=== PATIENT | male | born 1960 | race Caucasian/White ===

== ENCOUNTER 2022-10-26 23:48 | Inpatient (IN) | payer MEDICAID ==
[~2022-10-26] VITALS: Ht 165.1 cm; Wt 59.4 kg
[2022-10-26] MEDS ORDERED: ALBUTEROL SULFATE 2.5 MG/3 ML NEBU ONE (23:52)
[2022-10-26] MEDS ORDERED: IPRATROPIUM BROMIDE 0.5 MG/2.5 ML NEBU ONE (23:52)
[2022-10-27] VITALS (59 sets, daily range): BP systolic 78–153; BP diastolic 42–100
[2022-10-27] MEDS ORDERED: DEXAMETHASONE SOD PHOSPHATE 10 MG INJ ONE (00:03)
[2022-10-27] MEDS ORDERED: MAGNESIUM SULFATE/D5W 200 ML ONE (00:04)
[2022-10-27] MEDS ORDERED: ACETAMINOPHEN 650 MG SUPP.RECT RC ONE ×2 (00:06→00:15)
[2022-10-27] MEDS ORDERED: MAGNESIUM SULFATE 2 GM in IV DEXTROSE 5% 100 ML IV ONE (00:15)
[2022-10-27] MEDS ORDERED: DEXAMETHASONE SOD PHOSPHATE 4 MG INJ IV ONE (00:15)
[2022-10-27] MEDS ORDERED: CEFEPIME HCL 2 G in IV DEXTROSE 5% 50 ML IV ONE (00:15)
[2022-10-27] MEDS ORDERED: IPRATROPIUM BROMIDE 0.5 MG/2.5 ML NEBU NEB ONE (00:15)
[2022-10-27] MEDS ORDERED: ALBUTEROL SULFATE 2.5 MG/3 ML NEBU NEB ONE (00:15)
[2022-10-27] MEDS ORDERED: IV NORMAL SALINE 1000 ML BAG IV ONE (00:15)
[2022-10-27] MEDS ORDERED: VANCOMYCIN IV 1,000 MG in IV DEXTROSE 5% 250 ML IV ONE (00:15)
[2022-10-27] MEDS ORDERED: CEFEPIME HCL 1 G VIAL ONE (00:21)
[2022-10-27] MEDS ORDERED: VANCOMYCIN IV 200 ML ONE ×2 (00:21→01:02)
[2022-10-27] MEDS ORDERED: PRED2.5T PO (00:26)
[2022-10-27] MEDS ORDERED: LOSA25TA27 PO (00:26)
[2022-10-27] MEDS ORDERED: METF-440 PO (00:26)
[2022-10-27 00:29] LABS: SITE, VBG RIGHT BRACHIAL; VENT MODE, VBG BIPAP
[2022-10-27] MEDS ORDERED: IV NORMAL SALINE 500 ML BAG IV ONE ×3 (00:30→04:30)
[2022-10-27 00:53] LABS: HEMATOCRIT 24.7 % (36.7-47.1); MEAN CORPUSCULAR VOLUME 83.5 fL (73.0-96.2); PLATELET COUNT (AUTO) 148 K/uL (152-348)
[2022-10-27 00:53] LABS: CARBON DIOXIDE 18 mmol/L (21-32); CHLORIDE 107 mmol/L (98-107); CREATININE 2.2 mg/dL (0.6-1.3); GLUCOSE 134 mg/dL (74-106); POTASSIUM 3.6 mmol/L (3.5-5.1); UREA NITROGEN, BLOOD 47 mg/dL (7-18)
--- NOTE | 2022-10-27 01:01 | NUR ---
PULLED OUT VANCOMYCIN 1G. BAG DEFFECTIVE, WILL PULL OUT ANOTHER BAG.
[2022-10-27 01:07] LABS: ALANINE AMINOTRANSFERASE 24 U/L (16-63); ALKALINE PHOSPHATASE 105 U/L (50-136); ASPARTATE AMINOTRANSFERASE 17 U/L (15-37); BILIRUBIN,DIRECT 0.1 mg/dL (0.0-0.2); BILIRUBIN,TOTAL 0.2 mg/dL (0.2-1.0); TOTAL PROTEIN, SERUM 6.5 g/dL (6.4-8.2)
--- NOTE | 2022-10-27 02:02 | NUR ---
Patient's SBP in 90s. notified.
--- NOTE | 2022-10-27 03:00 | NUR ---
Patient's Beth called, updated about patient's condition. Made aware about plan for admission
--- NOTE | 2022-10-27 03:03 | NUR ---
Beth Clark [phone] - patient's
--- NOTE | 2022-10-27 04:08 | NUR ---
Patient refused vance catheter. notified
--- NOTE | 2022-10-27 04:10 | NUR ---
Patient has been accepted by Leisa Latif AEROSPACE TECHNICIAN - hospitalist
--- NOTE | 2022-10-27 04:14 | NUR ---
called 3rd floor for ANABELLA bed, spoke with Beth HU. Was told no ANABELLA bed available at the moment.
[2022-10-27] MEDS ORDERED: DEXTROSE 50% 50 ML DISP.SYRIN IV PRN (04:15)
[2022-10-27] MEDS ORDERED: MAGNESIUM HYDROXIDE 30 ML LIQUID UDC PO PRN (04:15)
[2022-10-27] MEDS ORDERED: HYDROCORTISONE SOD SUCCINATE 100 MG/2 ML VIAL IV ONE ×2 (04:15→04:53)
[2022-10-27] MEDS ORDERED: IV NS 1000 ML 1,000 ML IV PRN (04:15)
[2022-10-27] MEDS ORDERED: REMEDY ESSENTIAL ZINC PASTE 113 GM TP PRN (04:15)
--- NOTE | 2022-10-27 04:20 | NUR ---
Patient is now off Bipap
[2022-10-27] MEDS ORDERED: NOREPINEPHRINE BITARTRATE 8 MG in IV NORMAL SALINE 242 ML IV PRN (04:45)
--- NOTE | 2022-10-27 04:48 | NUR ---
Patient is placed back on Bipap
[2022-10-27] MEDS ORDERED: NOREPINEPHRINE BITARTRATE 4 MG/4 ML VIAL IV ONE (05:09)
[2022-10-27] MEDS ORDERED: PHENYLEPHRINE IV 100 MG in IV NORMAL SALINE 240 ML IV PRN ×2 (05:15→07:30)
[2022-10-27] MEDS ORDERED: PHENYLEPHRINE 10 MG/1 ML VIAL ONE (05:26)
[2022-10-27 05:42] LABS: ABG BASE EXCESS -9.5 mmol/L; ABG HCO3 15.5 mmol/L; ABG PH 7.331 (7.350-7.450); ABG PO2 145.9 mmHg (75.0-100.0); ABG SITE LEFT RADIAL; ABG TOTAL HEMOGLOBIN 7.2 G/dL (13.5-18.0); COHb 0.1 % (0.5-1.5); MetHb 0.3 % (0.0-1.5); O2Hb 96.2 % (94.0-97.0); VENT MODE BIPAP
--- NOTE | 2022-10-27 05:45 | NUR ---
Called Hospitalist machine precision engraver Leisa Latif NP, was told patient will be CCU status
[2022-10-27] MEDS ORDERED: IPRATROPIUM BROMIDE 0.5 MG/2.5 ML NEBU ONE ×3 (05:58→19:52)
[2022-10-27] MEDS ORDERED: CEFEPIME HCL 1 G in IV DEXTROSE 5% 50 ML IV SCH (06:00)
[2022-10-27] MEDS ORDERED: ALBUTEROL SULFATE 1.25 MG/3 ML NEBU NEB SCH ×2 (06:00→07:35)
[2022-10-27] MEDS ORDERED: ALBUTEROL SULFATE 1.25 MG/3 ML NEBU ONE ×2 (06:00→13:26)
[2022-10-27] MEDS ORDERED: IPRATROPIUM BROMIDE 0.5 MG/2.5 ML NEBU NEB SCH ×2 (06:00→13:30)
--- NOTE | 2022-10-27 06:05 | NUR ---
Endorsed to Paco RN - CCU
--- NOTE | 2022-10-27 06:32 | NUR ---
DR Bronson ordered PICC line insertion. Abdias VillafanaTimber Feller made aware.
--- NOTE | 2022-10-27 07:15 | NUR ---
Received pt,. from ICU/ER nurse pt. ON NSR rate in the 90's sbp maintained by neosynephrine running at max 3mcg/kg/min. Ms running at 150cc/hr. Patient AAOX4. able to sign PICC line consent. Peripheral IV bilateral to A/C area. bilateral skin tears to elbow area. will continue with care plan and notified attending.
[2022-10-27] MEDS: IPRATROPIUM BROMIDE 0.5 MG/2.5 ML NEBU NEB SCH ×3 (07:35→20:10)
[2022-10-27 07:50] LABS: HEMATOCRIT 24.7 % (36.7-47.1); MEAN CORPUSCULAR HEMOGLOBIN 25.2 uug (23.8-33.4); MEAN CORPUSCULAR VOLUME 82.8 fL (73.0-96.2); PLATELET COUNT (AUTO) 150 K/uL (152-348)
[2022-10-27] MEDS: BLOOD SUGAR DIAGNOSTIC 1 EACH STRIP VI SCH ×4 (08:08→21:20)
--- NOTE | 2022-10-27 08:55 | NUR ---
Attending physician Amarjit Sales Oleg in the unit to examine pt. after seen SBP readings Dr. Tracey to add levophed if needed it.
[2022-10-27] MEDS ORDERED: NOREPINEPHRINE BITARTRATE 32 MG in IV NORMAL SALINE 218 ML IV PRN ×2 (09:00→09:15)
[2022-10-27] MEDS ORDERED: ACETAMINOPHEN 650 MG SUPP.RECT RC PRN (09:15)
[2022-10-27 09:24] LABS: IRON, SERUM < 5 ug/dL (50-175)
--- NOTE | 2022-10-27 09:30 | NUR ---
Pulmonary services, Dr. Haynes in the unit to see and examine pt. report given see order hx.
[2022-10-27] MEDS: POTASSIUM CHLORIDE 20 MEQ in IV D5/ 0.9% NACL 1,000 ML IV PRN ×2 (09:42→23:44)
[2022-10-27] MEDS ORDERED: PANTOPRAZOLE SODIUM 40 MG VIAL ONE (09:52)
[2022-10-27] MEDS: PANTOPRAZOLE SODIUM 40 MG VIAL IV SCH (09:57)
--- NOTE | 2022-10-27 10:30 | NUR ---
Bladder scanned at this time with a total of 195cc resulted, as I was informed during shift report pt. did not void since arrival to E.. and according to pt. he has problems with retention and had procedures done in the past. attending notified orders to insert vance catheter received.
--- NOTE | 2022-10-27 10:45 | NUR ---
4 fail attempts to insert vance catheter pt's urethra has the size of a needle. Attending informed and I was informed to wait for urologist Dr. Nicholas and to have urologist cart ready.
[2022-10-27 10:47] LABS: *BILIRUBIN,URIN NEGATIVE (NEGATIVE); *BLOOD, URINE 3+ (NEGATIVE); *CLARITY,URINE CLEAR (CLEAR); *COLOR,URINE YELLOW (YELLOW); *KETONES,URINE NEGATIVE (NEGATIVE); *UROBILINOGEN,URINE 0.2 E.U./dl (NORMAL); LEUKOCYTE ESTERASE ,URINE 2+ (NEGATIVE); NITRITE, URINE POSITIVE (NEGATIVE); PH,URINE 5.5 (5.0-8.0); UGLUCOSE NEGATIVE (NEGATIVE)
[2022-10-27] MEDS: PHENYLEPHRINE IV 100 MG in IV NORMAL SALINE 240 ML IV PRN ×2 (11:08→15:34)
--- NOTE | 2022-10-27 11:50 | NUR ---
Dr. Ye urologist in to insert vance Procedure finish at 1300 Dr. flores to insert vance and patient undergo insertion of Supra Pubic Catheter. Addendum: 10/27/22 at 1431 by MESFIN WAGNER RN Suprapubic in and finish at 1255
[2022-10-27] MEDS ORDERED: CEFEPIME HCL 2 G in IV DEXTROSE 5% 100 ML IV SCH (12:00)
[2022-10-27] MEDS ORDERED: MEROPENEM 1 G in IV NORMAL SALINE 100 ML IV SCH (12:00)
[2022-10-27 12:06] LABS: BACTERIA,URINE MODERATE /HPF (NONE SEEN); SQUAMOUS EPITHELIAL CELL,UR MODERATE /HPF (NONE SEEN)
[2022-10-27] MEDS ORDERED: VANCOMYCIN IV 500 MG in IV DEXTROSE 5% 100 ML IV ONE ×2 (13:00→15:00)
--- NOTE | 2022-10-27 13:00 | NUR ---
PICC line R.N. in the unit procedure done at 1325 confirmation done by chest X-ray and as stated by picc line R.N. "Ok to use no need to wait for x-ray results."
[2022-10-27] MEDS: LEVALBUTEROL HCL NEB 0.63 MG/3 ML NEBU NEB SCH ×2 (13:36→20:10)
[2022-10-27] MEDS ORDERED: methylPREDNISolone SOD SUCC 40 MG/ML VIAL ONE ×2 (14:03→21:21)
[2022-10-27] MEDS: methylPREDNISolone SOD SUCC 40 MG/ML VIAL IV SCH ×2 (14:04→21:22)
--- NOTE | 2022-10-27 19:10 | NUR ---
At this time I was informed by Dr. Cottrell of a critical microbiology results. had already called Dr. Duron and recommended isolation for the patient. Following hospital protocol ID Dr. Roper was called and notified. As stated by her " the source of infection is more likely coming from the belly" and full report given. Dr. Roper stated "there is no need for isolation. Addendum: 10/27/22 at 2031 by MESFIN WAGNER RN At this time the called was transferred to Dr. Cottrell who had a lengthy conversation with ID physician. and then Dr. Cottrell suggested to continue with isolation at least for the first 24hours.
[2022-10-27] MEDS ORDERED: LEVALBUTEROL HCL NEB 0.63 MG/3 ML NEBU ONE (19:52)
--- NOTE | 2022-10-27 20:20 | NUR ---
Called [facility] ambulance to transport ICU patient to [facility] for droplet isolation. ETA is 1hr with param [place] house operator accompaning patient to [facility] with [facility] ambulance.
--- NOTE | 2022-10-27 20:25 | NUR ---
Dr. Duron called at this time to informed him of ID statements and also about the plans to transfer pt. and Dr. Tracey with transfer.
--- NOTE | 2022-10-27 20:36 | NUR ---
Black Leather Trimmer called ID physician and orders to follow isolation for droplet precautions."
[2022-10-27] MEDS ORDERED: DEXT50DI8 IV (20:50)
[2022-10-27] MEDS ORDERED: ACET650S13 RC (20:50)
[2022-10-27] MEDS ORDERED: NORE4PLA IV (20:50)
[2022-10-27] MEDS ORDERED: ONDA4VIA23 IV (20:50)
[2022-10-27] MEDS ORDERED: MERO1VIA23 IV (20:50)
[2022-10-27] MEDS ORDERED: Blood Sugar Diagnostic VI (20:50)
[2022-10-27] MEDS ORDERED: MENT113O TP (20:50)
[2022-10-27] MEDS ORDERED: ACET325T53 PO (20:50)
[2022-10-27] MEDS ORDERED: RXVAN XX (20:50)
[2022-10-27] MEDS ORDERED: INSU100V28 SQ ×2 (20:50)
[2022-10-27] MEDS ORDERED: [UNRECOGNIZED DRUG - CODE] IV (20:50)
[2022-10-27] MEDS ORDERED: PANT40VI IV (20:50)
[2022-10-27] MEDS ORDERED: IPRA0.2S6 NEB (20:50)
[2022-10-27] MEDS ORDERED: methylPREDNISolone SOD SUCC IV (20:50)
[2022-10-27] MEDS ORDERED: LEVA0.635 NEB (20:50)
--- NOTE | 2022-10-27 20:50 | NUR ---
PT. transfer to E.R. room 3 to observe droplet precautions.
--- NOTE | 2022-10-27 21:50 | NUR ---
Ambulance for transferring pt. Patient's files endorse to Septic [employer]er
[2022-10-27] MEDS ORDERED: MEROPENEM 1 G VIAL IV ONE (23:38)
[2022-10-27] MEDS: MEROPENEM 2 G in IV NORMAL SALINE 100 ML IV SCH (23:45)
[2022-10-28] VITALS (24 sets, daily range): BP systolic 117–169; BP diastolic 48–95
--- NOTE | 2022-10-28 01:00 | NUR ---
Patient with a severe episode of SOB saturation drop to low 88-94% patient became cyanotic with heart rate in the 120-125. BT provided and FIO2 increased to 100%. saturation up to 97%. Addendum: 10/28/22 at 0115 by MESFIN WAGNER RN PT still c/of feeling of shortness of breath.
[2022-10-28] MEDS ORDERED: LEVALBUTEROL HCL NEB 0.63 MG/3 ML NEBU ONE ×5 (01:05→19:08)
[2022-10-28] MEDS ORDERED: IPRATROPIUM BROMIDE 0.5 MG/2.5 ML NEBU ONE ×4 (01:05→19:08)
[2022-10-28] MEDS: LEVALBUTEROL HCL NEB 0.63 MG/3 ML NEBU NEB SCH ×4 (01:11→19:22)
[2022-10-28] MEDS: IPRATROPIUM BROMIDE 0.5 MG/2.5 ML NEBU NEB SCH ×4 (01:11→19:22)
--- NOTE | 2022-10-28 01:30 | NUR ---
FO2 down to 50% post treatment.
--- NOTE | 2022-10-28 03:33 | NUR ---
FIO2 down to 40%.
[2022-10-28] MEDS ORDERED: methylPREDNISolone SOD SUCC 40 MG/ML VIAL ONE ×3 (05:10→20:49)
[2022-10-28 05:11] LABS: HEMATOCRIT 21.5 % (36.7-47.1); MEAN CORPUSCULAR HEMOGLOBIN 25.2 uug (23.8-33.4); MEAN CORPUSCULAR VOLUME 82.2 fL (73.0-96.2); PLATELET COUNT (AUTO) 55 K/uL (152-348)
[2022-10-28] MEDS: methylPREDNISolone SOD SUCC 40 MG/ML VIAL IV SCH ×3 (05:11→21:02)
[2022-10-28 05:36] LABS: CREATININE 2.8 mg/dL (0.6-1.3); MAGNESIUM 2.2 mg/dL (1.8-2.4); PHOSPHOROUS 5.6 mg/dL (2.5-4.9); POTASSIUM 5.5 mmol/L (3.5-5.1)
--- NOTE | 2022-10-28 05:45 | NUR ---
FIO2 increased to 50% due to pt's c/of shortness of breath.
--- NOTE | 2022-10-28 06:15 | NUR ---
Abnormal labs reported to radiology transcriptionist Md. Jeff Lakhani orders to increase bipap rate to 24 RT team informed.
[2022-10-28 06:16] LABS: ABG HCO3 15.7 mmol/L; ABG PCO2 33.3 mmHg (35.0-45.0); ABG PO2 142.7 mmHg (75.0-100.0); ABG SITE LEFT RADIAL; ABG TOTAL HEMOGLOBIN 7.1 G/dL (13.5-18.0); COHb 0.1 % (0.5-1.5); MetHb 0.3 % (0.0-1.5); VENT MODE BIPAP
[2022-10-28] MEDS: BLOOD SUGAR DIAGNOSTIC 1 EACH STRIP VI SCH ×4 (07:42→21:03)
[2022-10-28] MEDS ORDERED: PANTOPRAZOLE SODIUM 40 MG VIAL ONE (08:06)
[2022-10-28] MEDS: PANTOPRAZOLE SODIUM 40 MG VIAL IV SCH (08:08)
[2022-10-28] MEDS: INSULIN REGULAR, HUMAN 300 UNIT/3 ML VIAL SQ PRN ×3 (08:16→16:14)
[2022-10-28] MEDS ORDERED: FUROSEMIDE 40 MG/4 ML VIAL ONE ×2 (09:19→20:48)
[2022-10-28] MEDS: FUROSEMIDE 40 MG/4 ML VIAL IV SCH ×2 (09:21→21:02)
[2022-10-28] MEDS ORDERED: IV D5/ 0.9% NACL 1,000 ML IV PRN (09:30)
[2022-10-28] MEDS ORDERED: VANCOMYCIN IV 500 MG in IV DEXTROSE 5% 100 ML IV ONE (11:00)
[2022-10-28] MEDS: MEROPENEM 2 G in IV NORMAL SALINE 100 ML IV SCH ×2 (11:50→23:09)
[2022-10-28] MEDS ORDERED: ALBUTEROL SULFATE 2.5 MG/3 ML NEBU ONE (13:14)
[2022-10-28] MEDS ORDERED: SODIUM BICARBONATE 8.4% 100 MEQ in IV D5 1/2 NS 1000 ML 1,000 ML IV PRN (14:00)
[2022-10-28 15:28] LABS: BILIRUBIN,TOTAL 0.6 mg/dL (0.2-1.0); CREATININE 3.1 mg/dL (0.6-1.3); MAGNESIUM 2.4 mg/dL (1.8-2.4); PHOSPHOROUS 5.5 mg/dL (2.5-4.9); POTASSIUM 5.4 mmol/L (3.5-5.1); TOTAL PROTEIN, SERUM 6.1 g/dL (6.4-8.2)
--- NOTE | 2022-10-28 20:15 | NUR ---
was given pt's insurance card and drivers license card to take home. Eye glasses remain with the patient. Pt is aware that the took the insurance card and DL.
[2022-10-28 20:59] LABS: HEMATOCRIT 27.1 % (36.7-47.1); MEAN CORPUSCULAR HEMOGLOBIN 25.8 uug (23.8-33.4); MEAN CORPUSCULAR VOLUME 81.3 fL (73.0-96.2); PLATELET COUNT (AUTO) 51 K/uL (152-348)
[2022-10-29] VITALS (24 sets, daily range): BP systolic 118–155; BP diastolic 68–94
[2022-10-29] MEDS ORDERED: LEVALBUTEROL HCL NEB 0.63 MG/3 ML NEBU ONE ×3 (00:24→13:04)
[2022-10-29] MEDS ORDERED: IPRATROPIUM BROMIDE 0.5 MG/2.5 ML NEBU ONE ×3 (00:24→13:04)
[2022-10-29] MEDS: IPRATROPIUM BROMIDE 0.5 MG/2.5 ML NEBU NEB SCH ×4 (01:07→19:33)
[2022-10-29] MEDS: LEVALBUTEROL HCL NEB 0.63 MG/3 ML NEBU NEB SCH ×4 (01:07→19:33)
[2022-10-29] MEDS ORDERED: methylPREDNISolone SOD SUCC 40 MG/ML VIAL ONE ×2 (05:41→15:40)
[2022-10-29] MEDS: methylPREDNISolone SOD SUCC 40 MG/ML VIAL IV SCH ×3 (05:42→22:00)
--- NOTE | 2022-10-29 06:55 | NUR ---
Received pt. on equipment monitor phototypesetting NSR with sbp within desired limits, no need of vasopressors. Remains on BIPAP : Rate 16, 10/5, 30% FIO2. As reported no NG- T unable to insert one pt. started bleeding and refusing it. SPC to gravity with clear fede output. skin breakdown to be follow up as ordered. Pt. on fist step mattress. PICC line patent.
[2022-10-29 07:34] LABS: HEMATOCRIT 27.2 % (36.7-47.1); MEAN CORPUSCULAR HEMOGLOBIN 25.7 uug (23.8-33.4); MEAN CORPUSCULAR VOLUME 80.6 fL (73.0-96.2)
[2022-10-29] MEDS: BLOOD SUGAR DIAGNOSTIC 1 EACH STRIP VI SCH ×4 (07:34→21:00)
[2022-10-29 07:42] LABS: PLATELET COUNT (AUTO) 48 K/uL (152-348)
[2022-10-29] MEDS ORDERED: FUROSEMIDE 20 MG/2 ML VIAL ONE ×2 (07:43→08:05)
[2022-10-29] MEDS ORDERED: PANTOPRAZOLE SODIUM 40 MG VIAL ONE (07:43)
[2022-10-29] MEDS: PANTOPRAZOLE SODIUM 40 MG VIAL IV SCH (08:04)
[2022-10-29] MEDS: FUROSEMIDE 40 MG/4 ML VIAL IV SCH (08:04)
[2022-10-29 08:06] LABS: CREATININE 2.8 mg/dL (0.6-1.3); MAGNESIUM 2.3 mg/dL (1.8-2.4); PHOSPHOROUS 5.5 mg/dL (2.5-4.9); POTASSIUM 4.1 mmol/L (3.5-5.1)
--- NOTE | 2022-10-29 08:06 | NUR ---
For 899 lasix transaction done twice in [place] I remove 2omg first by user error did not pick the 40mg. then went back to get the other 30mg.
[2022-10-29 08:21] LABS: ABG BASE EXCESS -0.4 mmol/L; ABG HCO3 22.8 mmol/L; ABG PCO2 32.1 mmHg (35.0-45.0); ABG PO2 92.3 mmHg (75.0-100.0); ABG SITE RIGHT RADIAL; ABG TOTAL HEMOGLOBIN 9.4 G/dL (13.5-18.0); COHb 1.5 % (0.5-1.5); MetHb 0.2 % (0.0-1.5); O2Hb 93.8 % (94.0-97.0); VENT MODE BIPAP - 15/5
[2022-10-29] MEDS: SODIUM BICARBONATE 8.4% 50 MEQ in IV D5W 1000ML 1,000 ML IV PRN (09:07)
--- NOTE | 2022-10-29 09:16 | NUR ---
Dr. Padilla in the unit to follow up on pt. report given, see order hx.
[2022-10-29 09:28] LABS: *URINE TOTAL PROTEIN RANDOM < 2.0 mg/dL (<150/24HR)
[2022-10-29 09:29] LABS: *CREATININE,URINE 14.4 mg/dL (30-125)
--- NOTE | 2022-10-29 10:15 | NUR ---
Pt. sinus on sinus tachycardia rate in the 120-s non-sustained pt. auscultated remains with c/of chest heaviness. EKG done and Sinus rhythm reading, notified to grades [address]ay.
--- NOTE | 2022-10-29 11:00 | NUR ---
PT. placed on high flow 35L 35% FIO2 PT. 20 min. after pt. is with c/of shortness of breath and feeling his chest heavy. saturation of 97% RR in the higher 20's. pt. slightly tachypneic SBO within normal Dr. Haynes called and orders to continue with high-flow if pt. desaturates and unable to tolerate high flow orders fo prn bipap as needed and draw blood gas if needed.
--- NOTE | 2022-10-29 11:45 | NUR ---
A call from Urologist Dr. Ye to follow up on SPC informed that device is draining when urine level rises above insertion site. Orders to advance it about two inches down received and implemented.
--- NOTE | 2022-10-29 12:30 | NUR ---
Pt's in to visit and at this time I was questioned about pt's glasses. According to she was here last night to visit and R.N. in charge of pt returned pt's belongings to her but she stated she did not take home the glasses I only took his ID card. I search for pt's reading glasses and did not find them. and belongings list was not updated when belongings returned.
[2022-10-29] MEDS: MEROPENEM 2 G in IV NORMAL SALINE 100 ML IV SCH ×2 (12:48→23:09)
[2022-10-29 13:01] LABS: *BILIRUBIN,URIN NEGATIVE (NEGATIVE); *BLOOD, URINE 2+ (NEGATIVE); *CLARITY,URINE CLEAR (CLEAR); *COLOR,URINE YELLOW (YELLOW); *KETONES,URINE NEGATIVE (NEGATIVE); *UROBILINOGEN,URINE 0.2 E.U./dl (NORMAL); LEUKOCYTE ESTERASE ,URINE TRACE (NEGATIVE); NITRITE, URINE NEGATIVE (NEGATIVE); PH,URINE 5.5 (5.0-8.0); UGLUCOSE NEGATIVE (NEGATIVE)
[2022-10-29 13:25] LABS: BACTERIA,URINE NONE SEEN /HPF (NONE SEEN); CALCIUM CARBONATE CRYSTALS,UR NONE SEEN /HPF (NONE SEEN); CALCIUM OXALATE CRYSTALS,UR NONE SEEN /HPF (NONE SEEN); CALCIUM PHOSPHATE CRYSTALS,UR NONE SEEN /HPF (NONE SEEN); COARSE GRANULAR CASTS,URINE NONE SEEN /LPF; CYSTINE CRYSTALS,URINE NONE SEEN /HPF (NONE SEEN); FATTY CASTS,URINE NONE SEEN /LPF (NONE SEEN); MUCUS,URINE FEW /LPF (0-FEW); RED BLOOD CELL CASTS,URINE NONE SEEN /LPF (NONE SEEN); SPERM,URINE NONE SEEN /HPF (NONE SEEN); SQUAMOUS EPITHELIAL CELL,UR FEW /HPF (NONE SEEN); TRICHOMONAS,URINE NONE SEEN /HPF (NONE SEEN); TRIPLE PHOSPHATE CRYSTAL,UR NONE SEEN /HPF (NONE SEEN); TYROSINE CRYSTAL,URINE NONE SEEN /HPF (NONE SEEN); URIC ACID CRYSTALS,URINE NONE SEEN /HPF (NONE SEEN); URINE AMORPHOUS PHOSPHATES NONE SEEN /HPF; URINE AMORPHOUS URATE NONE SEEN /HPF; WAXY CASTS,URINE NONE SEEN /LPF (NONE SEEN); WBC,URINE 0-3 /HPF (0-3); YEAST,URINE NONE SEEN /HPF (NONE SEEN)
[2022-10-29 14:46] LABS: BAND % (MANUAL) 0 % (0-10); NEUTROPHILS % (MANUAL) 94 % (42-75)
[2022-10-29 14:47] LABS: BASOPHILS % (MANUAL) 0 % (0-2); BLASTS, MANUAL % 0 % (0-0); EOSINOPHILS % (MANUAL) 0 % (0-8); LYMPHOCYTES % (MANUAL) 4 % (20-40); METAMYELOCYTES % 0 % (0-1); MONOCYTES % (MANUAL) 2 % (2-10); MYELOCYTES % 0 % (0-0); PROMYELOCYTES % 0 %; REACTIVE LYMPHOCYTES 0 % (0-0)
[2022-10-29] MEDS ORDERED: VANCOMYCIN IV 500 MG in IV DEXTROSE 5% 100 ML IV ONE (18:00)
--- NOTE | 2022-10-29 20:00 | NUR ---
O2 high flow 20L @ 30%
--- NOTE | 2022-10-29 20:00 | NUR ---
Glasses have been found.
[2022-10-29] MEDS: INSULIN REGULAR, HUMAN 300 UNITS/3 ML VIAL SQ PRN (21:00)
[2022-10-29] MEDS ORDERED: INSULIN REGULAR, HUMAN 300 UNIT/3 ML VIAL ONE (21:51)
--- NOTE | 2022-10-29 23:30 | NUR ---
O2 high flow 15L @ 30%
[2022-10-30] VITALS (23 sets, daily range): BP systolic 109–167; BP diastolic 68–89
--- NOTE | 2022-10-30 00:01 | NUR ---
Occasional PVC & pair's.
[2022-10-30] MEDS: IPRATROPIUM BROMIDE 0.5 MG/2.5 ML NEBU NEB SCH ×4 (00:40→19:15)
[2022-10-30] MEDS: LEVALBUTEROL HCL NEB 0.63 MG/3 ML NEBU NEB SCH ×3 (00:40→13:33)
[2022-10-30 05:06] LABS: MEAN CORPUSCULAR VOLUME 80.4 fL (73.0-96.2)
[2022-10-30 05:08] LABS: HEMATOCRIT 25.3 % (36.7-47.1)
[2022-10-30 05:26] LABS: PLATELET COUNT (AUTO) 40 K/uL (152-348)
[2022-10-30 05:30] LABS: CREATININE 2.5 mg/dL (0.6-1.3); POTASSIUM 3.5 mmol/L (3.5-5.1)
[2022-10-30 05:42] LABS: BILIRUBIN,DIRECT 0.2 mg/dL (0.0-0.2); BILIRUBIN,TOTAL 0.6 mg/dL (0.2-1.0); MAGNESIUM 2.1 mg/dL (1.8-2.4); PHOSPHOROUS 5.4 mg/dL (2.5-4.9); TOTAL PROTEIN, SERUM 5.7 g/dL (6.4-8.2)
[2022-10-30] MEDS: SODIUM BICARBONATE 8.4% 50 MEQ in IV D5W 1000ML 1,000 ML IV PRN (06:26)
[2022-10-30] MEDS: methylPREDNISolone SOD SUCC 40 MG/ML VIAL IV SCH ×3 (06:26→20:36)
[2022-10-30] MEDS: BLOOD SUGAR DIAGNOSTIC 1 EACH STRIP VI SCH ×4 (07:44→21:00)
[2022-10-30] MEDS ORDERED: IV 1/2NS 1000 ML 1,000 ML IV PRN (08:00)
[2022-10-30 08:31] LABS: ABG BASE EXCESS 5.3 mmol/L; ABG HCO3 28.9 mmol/L; ABG PCO2 38.2 mmHg (35.0-45.0); ABG PH 7.496 (7.350-7.450); ABG PO2 72.3 mmHg (75.0-100.0); ABG SITE RIGHT RADIAL; ABG TOTAL HEMOGLOBIN 8.8 G/dL (13.5-18.0); COHb 1.8 % (0.5-1.5); MetHb 0.2 % (0.0-1.5); O2Hb 90.8 % (94.0-97.0); VENT MODE HF
[2022-10-30] MEDS ORDERED: FUROSEMIDE 40 MG TABLET PO SCH (09:00)
[2022-10-30] MEDS: PANTOPRAZOLE SODIUM 40 MG VIAL IV SCH (09:21)
[2022-10-30] MEDS: MEROPENEM 1 G in IV NORMAL SALINE 100 ML IV SCH ×2 (13:05→20:36)
[2022-10-30] MEDS: ALBUTEROL SULFATE 1.25 MG/3 ML NEBU NEB SCH (19:15)
--- NOTE | 2022-10-30 20:57 | NUR ---
Noted [address] Lakhani notified; see orders.
[2022-10-30] MEDS ORDERED: POTASSIUM CHLORIDE 20 MEQ TAB.PRT.SR PO ONE (21:30)
[2022-10-30] MEDS: MAGNESIUM SULFATE/D5W 100 ML IV SCH ×3 (21:37→23:43)
[2022-10-31] VITALS (22 sets, daily range): BP systolic 134–165; BP diastolic 69–98
[2022-10-31] MEDS: MAGNESIUM SULFATE/D5W 100 ML IV SCH (00:43)
[2022-10-31] MEDS: IPRATROPIUM BROMIDE 0.5 MG/2.5 ML NEBU NEB SCH ×4 (00:48→20:51)
[2022-10-31] MEDS: ALBUTEROL SULFATE 1.25 MG/3 ML NEBU NEB SCH ×4 (00:48→20:51)
[2022-10-31] MEDS: MEROPENEM 1 G in IV NORMAL SALINE 100 ML IV SCH ×2 (04:24→12:10)
[2022-10-31 05:11] LABS: PHOSPHOROUS 4.6 mg/dL (2.5-4.9); POTASSIUM 3.9 mmol/L (3.5-5.1)
[2022-10-31 05:15] LABS: MEAN CORPUSCULAR VOLUME 81.4 fL (73.0-96.2)
[2022-10-31 05:16] LABS: MAGNESIUM 4.1 mg/dL (1.8-2.4)
[2022-10-31 05:21] LABS: PLATELET COUNT (AUTO) 37 K/uL (152-348)
[2022-10-31 06:15] LABS: ABG BASE EXCESS 2.4 mmol/L; ABG HCO3 26.5 mmol/L; ABG PCO2 38.8 mmHg (35.0-45.0); ABG PH 7.452 (7.350-7.450); ABG SITE RIGHT RADIAL; ABG TOTAL HEMOGLOBIN 8.4 G/dL (13.5-18.0); MetHb 0.3 % (0.0-1.5); O2Hb 94.1 % (94.0-97.0)
[2022-10-31] MEDS: BLOOD SUGAR DIAGNOSTIC 1 EACH STRIP VI SCH ×4 (07:41→21:57)
[2022-10-31] MEDS: INSULIN REGULAR, HUMAN 300 UNIT/3 ML VIAL SQ PRN ×2 (07:56→11:55)
[2022-10-31] MEDS: methylPREDNISolone SOD SUCC 40 MG/ML VIAL IV SCH ×2 (08:25→20:51)
[2022-10-31] MEDS: FUROSEMIDE 40 MG TABLET PO SCH (08:25)
[2022-10-31] MEDS: PANTOPRAZOLE SODIUM 40 MG VIAL IV SCH (08:25)
[2022-10-31] MEDS: CARVEDILOL 6.25 MG TABLET PO SCH ×2 (08:26→17:32)
[2022-10-31 11:07] LABS: HEPATITIS A AB, IgM Negative (Negative); HEPATITIS A AB, TOTAL Negative (Negative); HEPATITIS B SURFACE AG Negative (Negative)
--- NOTE | 2022-10-31 19:05 | NUR ---
Pt received on high flow oxygen changed to n/c 2 LPM. No distress observed suprapubic catheter in place drainage QS after lasix PO given. Complete bath given and incision care done. Dr Haynes order consult with GI AND Botany Professor but Dr Lakhani gave order with Dr Carbone and Dr Mccartney both doctors were called and placed order in the system. Pt remains NPO until GI-MD gives diet order. Dr Pride recommended Pt to be seen by oncologist and the possibility to transfer to higher level of care for care. Continue monitoring glucose level, and suprapubic catheter placement. Pt report no pain during this am shift Endorse care to incoming RN
--- NOTE | 2022-10-31 19:15 | NUR ---
Pt is noted in bed alert, responsive with call light in recah nad fall precautions in place as report is received from the off going nurse . Pt is Full code, Sinus Rhythm on the Tele monitor, Diminished Lungs sound with 02 2Liters Nasal Cannula , Skin dry, warm with skin areas noted, please see skin assessment sheet in chart. Pt is also noted with Right Upper Arm PICC Line and Suprapubic Cath in place . Pt care continue as he will be cmonitor closely for any S/S off distress or change in conditions as awaits GI and Hematology that has been consulted.
--- NOTE | 2022-10-31 19:45 | NUR ---
Pt care continue as he pt is seen by Estrada Martell Hematology/Oncology consulted by DR. Lakhani with orders noted for AM LOABS and CT off the CHEST/ABDOMINAL, PELVIS in AM as awaits GI to see Pt as well.
[2022-10-31] MEDS: CEFTRIAXONE 2 G in IV DEXTROSE 5% 100 ML IV SCH (20:51)
[2022-10-31] MEDS: METRONIDAZOLE 500 MG/NS 100ML 500 MG in PREMIXED 1 EACH IV SCH (21:58)
[2022-11-01] VITALS (24 sets, daily range): BP systolic 114–154; BP diastolic 66–107
--- NOTE | 2022-11-01 00:25 | NUR ---
Pt remain full code , Sinus rhythm on the Tele monitor with 02 2Liters Nasal Cannula therapy in progress as he is been monitor closely and assist as needed. Pt care continue .
[2022-11-01] MEDS: IPRATROPIUM BROMIDE 0.5 MG/2.5 ML NEBU NEB SCH ×4 (01:30→20:12)
[2022-11-01] MEDS: ALBUTEROL SULFATE 1.25 MG/3 ML NEBU NEB SCH ×4 (01:30→20:12)
[2022-11-01 04:43] LABS: HEMATOCRIT 28.2 % (36.7-47.1); MEAN CORPUSCULAR VOLUME 82.1 fL (73.0-96.2); PLATELET COUNT (AUTO) 57 K/uL (152-348)
[2022-11-01 04:54] LABS: THYROID STIMULATING HORMONE 1.169 mIU/mL (0.358-3.740)
[2022-11-01 04:57] LABS: BILIRUBIN,DIRECT 0.1 mg/dL (0.0-0.2); BILIRUBIN,TOTAL 0.4 mg/dL (0.2-1.0); TOTAL PROTEIN, SERUM 6.1 g/dL (6.4-8.2)
--- NOTE | 2022-11-01 04:59 | NUR ---
Pt is sleeping after LAB DRAW, AM and Wound as he remain on 02 2Liters Nsal Cannula with no S/S distress or C/O pain. Pt care continue with Right Upper Arm PICC Line and Suprapubic Cath in place.
[2022-11-01 05:15] LABS: *RHEUMATOID FACTOR SCREEN NEGATIVE (NEGATIVE)
[2022-11-01 05:47] LABS: CREATININE 1.9 mg/dL (0.6-1.3); MAGNESIUM 2.8 mg/dL (1.8-2.4); PHOSPHOROUS 5.3 mg/dL (2.5-4.9); POTASSIUM 4.1 mmol/L (3.5-5.1)
[2022-11-01] MEDS: METRONIDAZOLE 500 MG/NS 100ML 500 MG in PREMIXED 1 EACH IV SCH ×3 (06:19→21:57)
[2022-11-01] MEDS: BLOOD SUGAR DIAGNOSTIC 1 EACH STRIP VI SCH ×4 (06:29→20:36)
--- NOTE | 2022-11-01 07:10 | NUR ---
Received pt. on property assessment monitor NSR. AAOx4 sbp within desired limits. On NC saturation of 98%. pt. with c/of feeling short of breath. Saturation of 96-97%. Pt. NPO as ordered. Awaiting for CT abdomen consent obtained by night nurse. Iv line patent. SPC draining clear urine.
--- NOTE | 2022-11-01 07:12 | NUR ---
Pt care continue as report is given to AM receiving nurse and consent for CT with contrast is signed.
[2022-11-01] MEDS: CARVEDILOL 6.25 MG TABLET PO SCH ×2 (08:46→17:01)
[2022-11-01] MEDS: methylPREDNISolone SOD SUCC 40 MG/ML VIAL IV SCH ×2 (08:47→20:22)
[2022-11-01] MEDS: PANTOPRAZOLE SODIUM 40 MG VIAL IV SCH (08:47)
[2022-11-01] MEDS: FUROSEMIDE 40 MG TABLET PO SCH (08:47)
[2022-11-01] MEDS: SOD FERRIC GLUC COMPLX/SUCROSE 125 MG in IV NORMAL SALINE 100 ML IV SCH (14:03)
[2022-11-01] MEDS: INSULIN REGULAR, HUMAN 300 UNIT/3 ML VIAL SQ PRN (16:47)
[2022-11-01] MEDS ORDERED: IPRATROPIUM BROMIDE 0.5 MG/2.5 ML NEBU ONE ×2 (19:25→23:49)
[2022-11-01] MEDS ORDERED: ALBUTEROL SULFATE 1.25 MG/3 ML NEBU ONE ×2 (19:25→23:48)
[2022-11-01] MEDS: CEFTRIAXONE 2 G in IV DEXTROSE 5% 100 ML IV SCH (20:00)
[2022-11-01] MEDS ORDERED: methylPREDNISolone SOD SUCC 40 MG/ML VIAL ONE (20:19)
[2022-11-01] MEDS: INSULIN REGULAR, HUMAN 300 UNITS/3 ML VIAL SQ PRN (20:34)
[2022-11-01] MEDS ORDERED: ALTEPLASE 2 MG VIAL XX ONE ×2 (20:45)
[2022-11-02] VITALS (19 sets, daily range): BP systolic 107–155; BP diastolic 59–92
[2022-11-02] MEDS: IPRATROPIUM BROMIDE 0.5 MG/2.5 ML NEBU NEB SCH ×4 (00:03→20:37)
[2022-11-02] MEDS: ALBUTEROL SULFATE 1.25 MG/3 ML NEBU NEB SCH ×4 (00:04→20:38)
[2022-11-02 04:15] LABS: HEMATOCRIT 29.9 % (36.7-47.1); MEAN CORPUSCULAR HEMOGLOBIN 26.2 uug (23.8-33.4); MEAN CORPUSCULAR VOLUME 82.7 fL (73.0-96.2); PLATELET COUNT (AUTO) 86 K/uL (152-348)
[2022-11-02 04:27] LABS: CREATININE 1.8 mg/dL (0.6-1.3); MAGNESIUM 2.3 mg/dL (1.8-2.4); PHOSPHOROUS 5.9 mg/dL (2.5-4.9)
[2022-11-02] MEDS: METRONIDAZOLE 500 MG/NS 100ML 500 MG in PREMIXED 1 EACH IV SCH ×3 (05:02→22:39)
[2022-11-02] MEDS ORDERED: ALBUTEROL SULFATE 1.25 MG/3 ML NEBU ONE ×2 (05:58→13:49)
[2022-11-02] MEDS ORDERED: IPRATROPIUM BROMIDE 0.5 MG/2.5 ML NEBU ONE ×2 (05:58→13:49)
--- NOTE | 2022-11-02 07:02 | NUR ---
Received pt. resting comfortable, easily arousable, AAOX4. On awake overnight monitor and NSR sbp within desired limits no need of vasopressors. SPC draining clear urine output. BUE with bruises and skin tear healing. Pt. on nasal canula 2 liters with saturation of 97-98%. Will continue with care plan.
[2022-11-02] MEDS: BLOOD SUGAR DIAGNOSTIC 1 EACH STRIP VI SCH ×4 (07:16→20:47)
[2022-11-02] MEDS ORDERED: CARVEDILOL 6.25 MG TABLET ONE ×2 (07:22→17:05)
[2022-11-02] MEDS ORDERED: methylPREDNISolone SOD SUCC 40 MG/ML VIAL ONE (07:22)
[2022-11-02] MEDS ORDERED: PANTOPRAZOLE SODIUM 40 MG VIAL ONE (07:22)
[2022-11-02] MEDS ORDERED: FUROSEMIDE 40 MG TABLET ONE (07:22)
[2022-11-02 08:07] LABS: *IMMUNOGLOBULIN G, SERUM 812 mg/dL (603-1613); IMMUNOGLOBULIN M, SERUM 102 mg/dL (20-172)
[2022-11-02] MEDS: PANTOPRAZOLE SODIUM 40 MG VIAL IV SCH (08:08)
[2022-11-02] MEDS: methylPREDNISolone SOD SUCC 40 MG/ML VIAL IV SCH ×2 (08:09→21:02)
[2022-11-02] MEDS: FUROSEMIDE 40 MG TABLET PO SCH (08:09)
[2022-11-02] MEDS: CARVEDILOL 6.25 MG TABLET PO SCH ×2 (08:10→17:06)
[2022-11-02] MEDS: INSULIN REGULAR, HUMAN 300 UNIT/3 ML VIAL SQ PRN (11:17)
[2022-11-02] MEDS: GLUCERNA SHAKE 237 ML CAN PO SCH (13:45)
[2022-11-02] MEDS: SOD FERRIC GLUC COMPLX/SUCROSE 125 MG in IV NORMAL SALINE 100 ML IV SCH (14:22)
[2022-11-02 14:29] LABS: *BILIRUBIN,URIN NEGATIVE (NEGATIVE); *BLOOD, URINE 1+ (NEGATIVE); *CLARITY,URINE CLEAR (CLEAR); *COLOR,URINE YELLOW (YELLOW); *KETONES,URINE NEGATIVE (NEGATIVE); *UROBILINOGEN,URINE 0.2 E.U./dl (NORMAL); LEUKOCYTE ESTERASE ,URINE NEGATIVE (NEGATIVE); NITRITE, URINE NEGATIVE (NEGATIVE); PH,URINE 5.5 (5.0-8.0); UGLUCOSE TRACE (NEGATIVE)
[2022-11-02 14:39] LABS: BACTERIA,URINE NONE SEEN /HPF (NONE SEEN); SQUAMOUS EPITHELIAL CELL,UR NONE SEEN /HPF (NONE SEEN); WBC,URINE 0-3 /HPF (0-3)
--- NOTE | 2022-11-02 16:18 | NUR ---
I was informed by NS after she communicated with attending Dr. Aguilar orders to down-grade pt. to Telemetry status received.
--- NOTE | 2022-11-02 17:34 | NUR ---
Left pt. AAOx4. on NSR registered nurse cardiac sbp within desired limits. SPC patent clear fede output. Tolerating diet well no n/v/d. On NC 2 liters saturation of 97-98%. No sob. Picc line in place, patent.
--- NOTE | 2022-11-02 19:40 | NUR ---
Received patient in bed, no sob no chest pain, tele monitor sinus rhythm, patient has no complain of pain at this time, a bedside, supra pubic cath patent draining with yellow color in moderate amount, kept clean dry and comfortable.
[2022-11-02] MEDS: CEFTRIAXONE 2 G in IV DEXTROSE 5% 100 ML IV SCH (20:51)
[2022-11-03] VITALS: BP 125/74
[2022-11-03] MEDS: IPRATROPIUM BROMIDE 0.5 MG/2.5 ML NEBU NEB SCH ×4 (00:44→19:08)
[2022-11-03] MEDS: ALBUTEROL SULFATE 1.25 MG/3 ML NEBU NEB SCH ×4 (00:44→19:08)
[2022-11-03] MEDS ORDERED: DEXAMETHASONE SOD PHOSPHATE 4 MG INJ ONE (02:00)
[2022-11-03] MEDS ORDERED: EPINEPHRINE 1:10,000 1 MG/10 ML DISP.SYRIN ONE ×3 (02:00)
[2022-11-03] MEDS ORDERED: CALCIUM CHLORIDE 1 GM/10 ML DISP.SYRIN IVP ONE ×2 (02:00→21:40)
[2022-11-03] MEDS ORDERED: PHENYLEPHRINE 10 MG/1 ML VIAL ONE (02:00)
[2022-11-03] MEDS ORDERED: MINERAL OIL/PETROLAT OPHT OINT 3.5 GM TUBE ONE (02:00)
[2022-11-03] MEDS ORDERED: ETOMIDATE 20 MG/10 ML VIAL ONE (02:00)
[2022-11-03] MEDS ORDERED: ONDANSETRON 4 MG/2 ML VIAL ONE (02:00)
[2022-11-03] MEDS ORDERED: CEFAZOLIN 1 G VIAL ONE ×2 (02:00)
[2022-11-03] MEDS ORDERED: EPHEDRINE SULFATE 50 MG/ML AMPUL ONE ×2 (02:00)
[2022-11-03] MEDS ORDERED: LIDOCAINE-MPF 2% 5 ML VIAL ONE (02:00)
[2022-11-03 04:00] VITALS: BP 114/57
[2022-11-03] MEDS: METRONIDAZOLE 500 MG/NS 100ML 500 MG in PREMIXED 1 EACH IV SCH (05:02)
[2022-11-03] MEDS: BLOOD SUGAR DIAGNOSTIC 1 EACH STRIP VI SCH ×4 (06:37→20:46)
[2022-11-03 06:40] LABS: HEMATOCRIT 32.5 % (36.7-47.1); MEAN CORPUSCULAR HEMOGLOBIN 25.8 uug (23.8-33.4); MEAN CORPUSCULAR VOLUME 81.8 fL (73.0-96.2); PLATELET COUNT (AUTO) 137 K/uL (152-348)
[2022-11-03] MEDS ORDERED: PANTOPRAZOLE SODIUM 40 MG TABLET.DR PO SCH (07:00)
[2022-11-03 07:05] LABS: MAGNESIUM 2.1 mg/dL (1.8-2.4); POTASSIUM 3.8 mmol/L (3.5-5.1)
--- NOTE | 2022-11-03 07:10 | NUR ---
Received pt. resting comfortable, AAOx4. vitals stable see VS sheet. on NC 2L saturation above 95% no report of sob. On telemetry monitoring NSR. SPC draining clear output. pt. afebrile. PICC line present patent 2 ports occluded. Addendum: 11/03/22 at 0801 by MESFIN WAGNER RN We'll continue with care plan.
--- NOTE | 2022-11-03 07:11 | NUR ---
Patient awake no sob no chest pain, supra pubic cath patent draining with yellow color urine in moderate amount, no complain of pain, turn and reposition, no sob during adl's activity, saturation wnl. tx done on catheter site, clean, no draininage. cont to monitor.
[2022-11-03 07:45] VITALS: BP 119/72
[2022-11-03] MEDS: methylPREDNISolone SOD SUCC 40 MG/ML VIAL IV SCH ×2 (08:49→20:33)
[2022-11-03] MEDS: GLUCERNA SHAKE 237 ML CAN PO SCH (08:50)
[2022-11-03] MEDS: FUROSEMIDE 40 MG TABLET PO SCH (08:50)
[2022-11-03] MEDS: CARVEDILOL 6.25 MG TABLET PO SCH ×2 (08:50→17:37)
[2022-11-03 10:06] LABS: *ANTI-SCLERODERMA-70 AB 2.4 AI (0.0-0.9); *SJOGREN'S ANTI-SS-A <0.2 AI (0.0-0.9); *SJOGREN'S ANTI-SS-B <0.2 AI (0.0-0.9); *SMITH ANTIBODIES <0.2 AI (0.0-0.9); ANTI-DNA(DS) AB, QN 2 IU/mL (0-9)
[2022-11-03 12:00] VITALS: BP 113/67
[2022-11-03 13:06] LABS: A/G RATIO 0.9 (0.7-1.7); ALBUMIN 2.5 g/dL (2.9-4.4); ALPHA-1-GLOBULIN 0.3 g/dL (0.0-0.4); BETA GLOBULIN 0.8 g/dL (0.7-1.3); GAMMA GLOBULIN 0.8 g/dL (0.4-1.8); GLOBULIN, TOTAL 2.8 g/dL (2.2-3.9); M-SPIKE Not Observed g/dL (Not Observed)
[2022-11-03] MEDS ORDERED: METRONIDAZOLE 500 MG TABLET PO SCH (14:00)
[2022-11-03] MEDS: SOD FERRIC GLUC COMPLX/SUCROSE 125 MG in IV NORMAL SALINE 100 ML IV SCH (14:23)
[2022-11-03 16:00] VITALS: BP 109/71
--- NOTE | 2022-11-03 16:40 | NUR ---
Patient with c/of excruciating pain to abdominal area which upon assessment noted to be more distended and patient stating area feels tender with severe pain. Attending notified since pt. is refusing to received tylenol "stating this pain is not to be treated with tylenol" orders for morphine received implemented and orders for CT abdomen pelvis without contrast received.
[2022-11-03] MEDS: MORPHINE SULFATE 4 MG/1 ML DISP.SYRIN IV PRN (16:44)
[2022-11-03] MEDS: ACETAMINOPHEN 325 MG TABLET PO PRN (17:21)
--- NOTE | 2022-11-03 17:25 | NUR ---
PT. down for CT.
--- NOTE | 2022-11-03 17:39 | NUR ---
Patient back from Ct.
[2022-11-03] MEDS ORDERED: HYDROMORPHONE 1 MG/1 ML DISP.SYRIN IVP PRN (18:30)
--- NOTE | 2022-11-03 18:44 | NUR ---
Results for CT. called in by radiologist and attending Dr. Jeff Lakhani notified.
[2022-11-03] MEDS: ONDANSETRON 4 MG/2 ML VIAL IV PRN (18:57)
--- NOTE | 2022-11-03 19:00 | NUR ---
Received patient in bed alert oriented, no sob no chest pain, tele monitor sinus rhythm at this time, patient has no complain of pain, suprapubic cath patent, draining with yellow color urine in moderate amount, on 4 liters nasal cannula, cont to monitor.
--- NOTE | 2022-11-03 19:13 | NUR ---
Dr. Lakhani spoke with pt. and discussed care plan. orders to start pt. on LR at 125cc/hr received, and endorsed to incoming shift nurse Will. Pt. medicated for pain, as ordered left resting. Orders to up-grade pt. to telemetry.
[2022-11-03] MEDS: IV LACTATED RINGERS SOLUTION 1,000 ML IV PRN (19:43)
[2022-11-03 20:00] VITALS: BP 101/62
[2022-11-03] MEDS: CEFTRIAXONE 2 G in IV DEXTROSE 5% 100 ML IV SCH (20:14)
--- NOTE | 2022-11-03 20:30 | NUR ---
Dr Dwayne Pereira came to see the patient, spoke with the patient, and to via phone, explaining them procedures is going to happen, patient alert oriented, able to follow, able to sign for surgical consent, mickie Clark is also aware of the procedure.
[2022-11-03] MEDS: INSULIN REGULAR, HUMAN 300 UNITS/3 ML VIAL SQ PRN (21:08)
--- NOTE | 2022-11-03 21:30 | NUR ---
Patient wheeled to OR department, alert oriented, on 4liters NC, endorse to OR nurse.
[2022-11-03] MEDS ORDERED: KETAMINE HCL 200 MG/20 ML VIAL ONE (21:40)
[2022-11-03] MEDS ORDERED: FENTANYL CITRATE 100 MCG/2 ML AMPUL ONE (21:40)
[2022-11-03] MEDS ORDERED: ALBUMIN HUMAN 5% 500 ML ONE (21:41)
[2022-11-03] MEDS ORDERED: FAMOTIDINE. 20 MG/2 ML VIAL IV ONE (21:41)
[2022-11-03] MEDS ORDERED: ROCURONIUM BROMIDE 50 MG/5 ML VIAL ONE (21:41)
[2022-11-03] MEDS ORDERED: ALBUTEROL SULFATE 8 GM HFA.AER.AD ONE (21:59)
[2022-11-03] MEDS ORDERED: DOPamine IV DRIP 400 MG/250ML 250 ML ONE (22:18)
[2022-11-03] MEDS ORDERED: VASOPRESSIN 20 UNIT/ML VIAL ONE (23:27)
[2022-11-04] VITALS (75 sets, daily range): BP systolic 82–181; BP diastolic 31–92
[2022-11-04] MEDS ORDERED: NOREPINEPHRINE BITARTRATE 32 MG in IV NORMAL SALINE 218 ML IV PRN ×2 (00:15→14:30)
[2022-11-04] MEDS ORDERED: ALBUMIN HUMAN 25% 100 ML IV ONE (00:15)
[2022-11-04] MEDS ORDERED: ALBUMIN HUMAN 5% 250 ML ONE (00:27)
[2022-11-04] MEDS ORDERED: PIPERACILLIN SODIUM/TAZOBACTAM 3.375 G in IV DEXTROSE 5% 50 ML IV SCH ×2 (00:30→08:30)
[2022-11-04] MEDS ORDERED: VANCOMYCIN IV 1,000 MG in IV DEXTROSE 5% 250 ML IV ONE (01:00)
[2022-11-04] MEDS: IPRATROPIUM BROMIDE 0.5 MG/2.5 ML NEBU NEB SCH ×4 (01:26→19:14)
[2022-11-04] MEDS: ALBUTEROL SULFATE 1.25 MG/3 ML NEBU NEB SCH ×4 (01:26→19:14)
[2022-11-04 01:58] LABS: ABG BASE EXCESS -6.3 mmol/L; ABG HCO3 20.6 mmol/L; ABG PCO2 47.7 mmHg (35.0-45.0); ABG PH 7.254 (7.350-7.450); ABG PO2 312.5 mmHg (75.0-100.0); ABG SITE A-Line; COHb 0.4 % (0.5-1.5); MetHb 0.3 % (0.0-1.5); O2Hb 97.9 % (94.0-97.0); VENT MODE VENT - A/C; VT, ABG 450 mL
[2022-11-04 02:00] LABS: HEMATOCRIT 29.4 % (36.7-47.1); MEAN CORPUSCULAR HEMOGLOBIN 27.2 uug (23.8-33.4); MEAN CORPUSCULAR VOLUME 85.9 fL (73.0-96.2); PLATELET COUNT (AUTO) 90 K/uL (152-348)
[2022-11-04] MEDS ORDERED: FLUCONAZOLE 200 MG/100 ML PIGGYBACK ONE (02:14)
[2022-11-04] MEDS ORDERED: METRONIDAZOLE 500 MG/NS 100ML 100 ML IV ONE (02:15)
[2022-11-04 02:21] LABS: CREATININE 2.1 mg/dL (0.6-1.3); POTASSIUM 3.4 mmol/L (3.5-5.1)
[2022-11-04 02:26] LABS: BILIRUBIN,TOTAL 0.3 mg/dL (0.2-1.0); TOTAL PROTEIN, SERUM 4.7 g/dL (6.4-8.2)
[2022-11-04 02:38] LABS: MAGNESIUM 2.6 mg/dL (1.8-2.4)
[2022-11-04 03:06] LABS: HEPATITIS B SURFACE AG Negative (Negative)
[2022-11-04] MEDS ORDERED: FLUCONAZOLE 400MG /NS 200ML IV 400 MG in PREMIXED 1 EACH IV SCH (04:00)
--- NOTE | 2022-11-04 04:00 | NUR ---
assumed care at 0400 received report from child care lead teacher . PATIENT open eyes to name nod head to simple questions and able to moved right and left upper extremities soft bilateral wrist restraint implemented for safety ti prevent ett from pulling put . intubated vent ett size 7.5 lip at 21 SIMV rate 10,tv 450 fio2 100% no respiratory distress noted breathing synchronizing with vent settings 100 % FIO2 RR 17. OGT TUBE at 60 cm tape to the lip to LIWS with 300 ml of residual yellowish brownish in color gastric output . dopamine drip (400mg/250ml) at 7 mcg/kg/min and epinephrine drip (2mg in 250 ml normal saline at 4 ml/hr to keep sbp >100.wean off epinephrine drip 1st and then dopamine drip for sbp >100 and urinary output >30ml /hr via the right IJ TLC. left wrist reji zeroed and continues bp monitoring right IJ TLC for medication and bp medication flushed all port patent ,changed dressing done aseptically . right upper arm piccline 3 lumen flushed dressing cdi . checked post op site CDI patient with abdominal binder on with right and left ILENE sump to bulb suction each ILENE had 40ml of seroserous drainage. left colostomy bag is cdi stoma is pinkish in color .mid lower abdomen area with suprapubic catheter with 400ml of yellowish urine .
--- NOTE | 2022-11-04 04:33 | NUR ---
Diflucan was given by recovery operator at 0300 flagyl was given by recovery operator at 0220.
[2022-11-04] MEDS ORDERED: VANCOMYCIN IV 200 ML ONE (04:34)
[2022-11-04] MEDS ORDERED: PIPERACILLIN/TAZOBACTAM/D5W 50 ML IV ONE (04:34)
[2022-11-04] MEDS: IV LACTATED RINGERS SOLUTION 1,000 ML IV PRN ×2 (04:47→18:40)
[2022-11-04] MEDS ORDERED: METRONIDAZOLE 500 MG/NS 100ML 500 MG in PREMIXED 1 EACH IV SCH ×2 (06:00→10:00)
[2022-11-04] MEDS: BLOOD SUGAR DIAGNOSTIC 1 EACH STRIP VI SCH ×4 (06:54→21:55)
[2022-11-04 07:00] LABS: HEMATOCRIT 30.7 % (36.7-47.1); MEAN CORPUSCULAR HEMOGLOBIN 27.5 uug (23.8-33.4); MEAN CORPUSCULAR VOLUME 86.1 fL (73.0-96.2); PLATELET COUNT (AUTO) 85 K/uL (152-348)
--- NOTE | 2022-11-04 07:00 | NUR ---
off epinephrine drip patient now only on dopamine drip .
[2022-11-04] MEDS ORDERED: ALBUTEROL SULFATE 1.25 MG/3 ML NEBU ONE ×3 (07:11→19:09)
[2022-11-04] MEDS ORDERED: IPRATROPIUM BROMIDE 0.5 MG/2.5 ML NEBU ONE ×3 (07:11→19:10)
--- NOTE | 2022-11-04 07:30 | NUR ---
dr: thad buddhist monk saw patient and examined patient .
[2022-11-04 07:40] LABS: MAGNESIUM 2.8 mg/dL (1.8-2.4); PHOSPHOROUS 6.4 mg/dL (2.5-4.9); POTASSIUM 3.3 mmol/L (3.5-5.1)
[2022-11-04 07:42] LABS: BILIRUBIN,DIRECT 0.2 mg/dL (0.0-0.2); BILIRUBIN,TOTAL 0.4 mg/dL (0.2-1.0); MAGNESIUM 2.8 mg/dL (1.8-2.4); PHOSPHOROUS 6.5 mg/dL (2.5-4.9); TOTAL PROTEIN, SERUM 4.6 g/dL (6.4-8.2)
[2022-11-04] MEDS ORDERED: methylPREDNISolone SOD SUCC 40 MG/ML VIAL ONE (08:11)
[2022-11-04] MEDS ORDERED: PANTOPRAZOLE SODIUM 40 MG VIAL ONE (08:12)
[2022-11-04] MEDS: PANTOPRAZOLE SODIUM 40 MG VIAL IV SCH ×2 (08:14→21:52)
[2022-11-04] MEDS: methylPREDNISolone SOD SUCC 40 MG/ML VIAL IV SCH ×2 (08:15→21:52)
[2022-11-04] MEDS: DOPamine IV DRIP 400 MG/250ML 250 ML IV PRN ×2 (08:59→21:52)
[2022-11-04 10:56] LABS: ABG HCO3 22.1 mmol/L; ABG PCO2 44.2 mmHg (35.0-45.0); ABG PH 7.316 (7.350-7.450); ABG PO2 74.4 mmHg (75.0-100.0); ABG SITE RIGHT RADIAL; ABG TOTAL HEMOGLOBIN 10.6 G/dL (13.5-18.0); COHb 0.9 % (0.5-1.5); MetHb 0.3 % (0.0-1.5); O2Hb 91.8 % (94.0-97.0); VENT MODE CPAP
[2022-11-04] MEDS: POTASSIUM CHLORIDE 10 MEQ, LIDOCAINE-MPF 1% 1 ML in IV DEXTROSE 5% 100 ML IV SCH ×4 (11:03→14:21)
[2022-11-04] MEDS ORDERED: DC PROPOFOL ONCE EXTUBATED XX PRN (11:15)
[2022-11-04] MEDS: PIPERACILLIN SODIUM/TAZOBACTAM 3.375 G in IV DEXTROSE 5% 100 ML IV SCH ×2 (12:03→21:52)
[2022-11-04] MEDS ORDERED: NOREPINEPHRINE BITARTRATE 4 MG/4 ML VIAL IV ONE (14:21)
[2022-11-04] MEDS: SOD FERRIC GLUC COMPLX/SUCROSE 125 MG in IV NORMAL SALINE 100 ML IV SCH (15:19)
--- NOTE | 2022-11-04 18:52 | NUR ---
PT EXTUBATED @1110 AND PLACED ON 3 LPM N/C, SPO2 WNL, PT SHOWED MILD DISTRESS AND TACHYPNEA. PT PLACED ON BIPAP @ 1330 DUE TO INCREASED WOB. PT IS CURRENTLY STABLE ON THE BIPAP ON 30% FIO2. SPO2 AND RESPIRATIONS WNL. Q6 TREATMENTS TOLERATED WELL WITHOUT ADVERSE REACTION. PROTECTA-GEL APPLIED ON BRIDGE OF NOSE FOR SKIN INTEGRITY. WILL CONTINUE TO MONITOR AND FOLLOW CURRENT RESPIRATORY ORDERS.
--- NOTE | 2022-11-04 19:00 | NUR ---
Spoke with Beth Clark () and updated her about patient's condition. She asked me to add his sister, Oscar to the contact information phone number is [phone] and she is able consent for the patient in the event that Beth is unavailable.
--- NOTE | 2022-11-04 19:10 | NUR ---
Pt is noted in ER unit , in bed , responsive with call light in reach and fall precautions in place as report is received from the off going nurse that Pt is S/P Extubated at 1111 AM and he is S/P LAP verus open Abdominal Exploration, possible bowel resection possible ostomy . Rigid Sigmoidoscopy with dressing to ri abdominal and ILENE X2 noted with Left Colostomy . Pt is Full code, Sinus Rhythm on the Tele monitor, Diminished Lungs sound with BiPAP therapy , Skin dry, warm with skin areas noted, please see skin assessment sheet in chart. Pt is also noted with Right Upper Arm PICC Line , RIJ and Suprapubic Cath in place . Pt care continue as he will be monitor closely for any S/S off distress or change in conditions as awaits as he is noted on Dopamine gtt at 9mcg and Levo at 0.05mcg. Pt will be transferred up on the 2nd Floor ICU unit as soon as posable.
--- NOTE | 2022-11-04 19:35 | NUR ---
Report given to Vannessa for machinist 2nd shift
--- NOTE | 2022-11-04 20:00 | NUR ---
Pt is been transferred up on the 2nd Floor ICU unit Bed-4 with no s/s off distress as family is been notify. Pt care continue.
[2022-11-04] MEDS: ONDANSETRON 4 MG/2 ML VIAL IV PRN (21:52)
[2022-11-04] MEDS: MORPHINE SULFATE 4 MG/1 ML DISP.SYRIN IV PRN (21:53)
[2022-11-05] VITALS (47 sets, daily range): BP systolic 92–178; BP diastolic 36–76
--- NOTE | 2022-11-05 00:15 | NUR ---
Pt remain full code , Sinus rhythm on the Tele monitor with BiPAP therapy in progress as he is been monitor closely and assist as needed. Pt care continue Levo and Dopomine gtt therapy and Suprapubic Cath with ILENE X2 drains in place .
[2022-11-05] MEDS: IPRATROPIUM BROMIDE 0.5 MG/2.5 ML NEBU NEB SCH ×4 (01:15→20:20)
[2022-11-05] MEDS: ALBUTEROL SULFATE 1.25 MG/3 ML NEBU NEB SCH ×4 (01:15→20:20)
[2022-11-05] MEDS: FLUCONAZOLE 200 MG/NS 100ML IV 200 MG in PREMIXED 1 EACH IV SCH (03:35)
--- NOTE | 2022-11-05 04:25 | NUR ---
Pt is sleeping after LAB DRAW, AM and Wound done as he remain on BiPAP thgerapy with no S/S distress or C/O pain. Pt care continue with Right Upper Arm PICC Line, RIJ , Left Arterial Line and Suprapubic Cath in place with Dopamine at 8mcg and Levo at 0.05mcg.
[2022-11-05 05:09] LABS: MEAN CORPUSCULAR HEMOGLOBIN 27.1 uug (23.8-33.4); MEAN CORPUSCULAR VOLUME 86.7 fL (73.0-96.2); PLATELET COUNT (AUTO) 83 K/uL (152-348)
[2022-11-05 05:31] LABS: BILIRUBIN,DIRECT 0.2 mg/dL (0.0-0.2); BILIRUBIN,TOTAL 0.4 mg/dL (0.2-1.0); CREATININE 1.9 mg/dL (0.6-1.3); MAGNESIUM 2.2 mg/dL (1.8-2.4); PHOSPHOROUS 4.8 mg/dL (2.5-4.9); POTASSIUM 4.3 mmol/L (3.5-5.1); TOTAL PROTEIN, SERUM 4.9 g/dL (6.4-8.2)
[2022-11-05] MEDS: PIPERACILLIN SODIUM/TAZOBACTAM 3.375 G in IV DEXTROSE 5% 100 ML IV SCH ×3 (05:50→20:26)
[2022-11-05 06:20] LABS: ABG BASE EXCESS -4.6 mmol/L; ABG HCO3 20.7 mmol/L; ABG PCO2 38.7 mmHg (35.0-45.0); ABG PH 7.346 (7.350-7.450); ABG PO2 88.1 mmHg (75.0-100.0); ABG SITE RIGHT RADIAL; ABG TOTAL HEMOGLOBIN 9.6 G/dL (13.5-18.0); MetHb 0.3 % (0.0-1.5); O2Hb 94.1 % (94.0-97.0); VENT MODE BIPAP
[2022-11-05] MEDS: BLOOD SUGAR DIAGNOSTIC 1 EACH STRIP VI SCH ×4 (06:40→20:56)
--- NOTE | 2022-11-05 07:05 | NUR ---
Pt care continue as he is started on the 24hrs urine collections as report is given to the AM receiving nurse.
--- NOTE | 2022-11-05 07:10 | NUR ---
Received pt. AAOX4. on workforce specialist NSR on dopamine running at 6mcg/kg/min and levophed running at 0.05mcg/kg/min NISBP in the 150's and Arterial sbp in the 150's as well. Levophed turn off at this time. SPC draining back empty and as reported pt. due to for 24hours urine collection, orders from 11/04/22 1535 started at this time. TLC patent and infusing with LR at 125cc/hr. BIPAP on 10/11, Rate of 16 FIO2 30%. saturation of 98-100%. Midline Abdominal incision with dressing c.d.i. abdominal binder ILENE to both right and left quadrant with serous sanguinous drainage noted. colostomy with stoma bright red in color bag attached no leading or skin breakdown noted. Patient NPO Will continue with care plan.
--- NOTE | 2022-11-05 07:48 | NUR ---
Respiratory services Dr. Haynes in the untit to follow up on pt. report given orders to continue with care plan received.
[2022-11-05] MEDS ORDERED: VANCOMYCIN IV 750 MG in IV DEXTROSE 5% 250 ML IV ONE (08:00)
[2022-11-05] MEDS: PANTOPRAZOLE SODIUM 40 MG VIAL IV SCH ×2 (08:15→20:26)
[2022-11-05] MEDS: methylPREDNISolone SOD SUCC 40 MG/ML VIAL IV SCH ×2 (08:15→20:27)
[2022-11-05] MEDS ORDERED: NOREPINEPHRINE BITARTRATE 32 MG in IV NORMAL SALINE 218 ML IV PRN ×4 (09:00)
[2022-11-05] MEDS: SOD FERRIC GLUC COMPLX/SUCROSE 125 MG in IV NORMAL SALINE 100 ML IV SCH (13:55)
--- NOTE | 2022-11-05 18:00 | NUR ---
RIGHT ARTUR 20 ml for the shift LEFT artur 50 ml for the shift Urine output total of 800 ml/shift. Addendum: 11/05/22 at 1823 by MESFIN WAGNER RN Colostomy bag no output
[2022-11-05] MEDS: IV LACTATED RINGERS SOLUTION 1,000 ML IV PRN (18:55)
--- NOTE | 2022-11-05 19:10 | NUR ---
Pt is noted in bed alert, responsive with call light in reach and fall precautions in place as report is received from the off going nurse that Pt is S/P Extubated on 11/04/22 , POD#1 for LAP verus open Abdominal Exploration, possible bowel resection possible ostomy . Rigid Sigmoidoscopy with dressing to mid abdominal and ILENE X2 noted with Left Colostomy . Pt is Full code, Sinus Rhythm on the Tele monitor, Diminished Lungs sound with BiPAP therapy , Skin dry, warm with skin areas noted, please see skin assessment sheet in chart. Pt is also noted with Right Upper Arm PICC Line , RIJ and Suprapubic Cath in place . Pt care continue as he will be monitor closely for any S/S off distress or change in conditions with pain management , 24hrs Urine collections in progress with Antibiotic and IVF therapy .
--- NOTE | 2022-11-05 19:15 | NUR ---
Pt noted been wean off both Dopamine and Levo gtt during day shift with Blood Pressure SPB>120 . Pt care continue as he will be monitor closely.
--- NOTE | 2022-11-05 21:45 | NUR ---
Pt noted vat bgedside visiting Pt with updates given to her on Pt care off plans. Pt care continue.
[2022-11-06] VITALS (31 sets, daily range): BP systolic 109–172; BP diastolic 38–104
--- NOTE | 2022-11-06 00:20 | NUR ---
Pt remain full code , Sinus rhythm on the Tele monitor with BiPAP therapy in progress as he is been monitor closely and assist as needed. Pt care continue with 24hrs Urine collections in progress and IVF and Antibiotic therapy in progress.
[2022-11-06] MEDS: FLUCONAZOLE 200 MG/NS 100ML IV 200 MG in PREMIXED 1 EACH IV SCH (02:12)
[2022-11-06] MEDS: ALBUTEROL SULFATE 1.25 MG/3 ML NEBU NEB SCH ×4 (02:39→19:30)
[2022-11-06] MEDS: IPRATROPIUM BROMIDE 0.5 MG/2.5 ML NEBU NEB SCH ×4 (02:39→19:30)
--- NOTE | 2022-11-06 04:35 | NUR ---
Pt is sleeping after AM and Wound done as he remain on BiPAP therapy with no S/S distress or C/O pain. Pt care continue with Right Upper Arm PICC Line, RIJ , Left Arterial Line and Suprapubic Cath in place with 24hrs Urine collections in place.
[2022-11-06] MEDS: PIPERACILLIN SODIUM/TAZOBACTAM 3.375 G in IV DEXTROSE 5% 100 ML IV SCH ×3 (06:00→20:40)
[2022-11-06 06:28] LABS: HEMATOCRIT 25.3 % (36.7-47.1); MEAN CORPUSCULAR HEMOGLOBIN 27.2 uug (23.8-33.4); MEAN CORPUSCULAR VOLUME 86.3 fL (73.0-96.2); PLATELET COUNT (AUTO) 86 K/uL (152-348)
[2022-11-06 06:39] LABS: ABG BASE EXCESS -3.3 mmol/L; ABG HCO3 21.2 mmol/L; ABG PCO2 35.5 mmHg (35.0-45.0); ABG PH 7.394 (7.350-7.450); ABG PO2 115.1 mmHg (75.0-100.0); ABG SITE A-Line; ABG TOTAL HEMOGLOBIN 7.5 G/dL (13.5-18.0); COHb 1.3 % (0.5-1.5); MetHb 0.3 % (0.0-1.5); VENT MODE BIPAP
[2022-11-06] MEDS: BLOOD SUGAR DIAGNOSTIC 1 EACH STRIP VI SCH ×4 (06:48→21:00)
[2022-11-06 06:53] LABS: CREATININE 1.7 mg/dL (0.6-1.3); PHOSPHOROUS 4.3 mg/dL (2.5-4.9); POTASSIUM 3.8 mmol/L (3.5-5.1)
--- NOTE | 2022-11-06 07:30 | NUR ---
Pt care continue as report is given to the AM receiving nurse.
--- NOTE | 2022-11-06 08:00 | NUR ---
AWAKE,ALERT,ORIENTED. NO C/O VOICED. ABDOMINAL DRESSING INTACT /DRY. COLOSTOMY BAG 0 OUTPUT. 2 ODESSA BRANNON WITH SCANTY OUTPUT.. ANDRES CATHETER WITH SMALL AMOUNT OF URINE OUTPUT. HERE WITH ORDER. DC A-LINE.IV FLUID LR DISC. CLONIDINE0.1 MG PATCH PLACED TO RT ARM. RIJ IV PATENT AND RT. ARM PICC LINE SITE OK 1050- HEART RATE-140- NOTIFIED WITH EKG ORDER. 1130- HEART RATE- 90- SINUS RTHYM WITH PAC. 1145- HEART RYTHM- BACK TO SINUS TACH.140 WILL GET EKG AND CALL DOCTOR AGAIN NO DISTRESS VOICED.
[2022-11-06] MEDS ORDERED: FUROSEMIDE 40 MG/4 ML VIAL IV ONE (08:15)
[2022-11-06] MEDS ORDERED: VANCOMYCIN IV 500 MG in IV DEXTROSE 5% 100 ML IV ONE (09:00)
[2022-11-06] MEDS ORDERED: CLONIDINE-TTS 1 PATCH TD SCH (09:00)
[2022-11-06] MEDS: PANTOPRAZOLE SODIUM 40 MG VIAL IV SCH ×2 (09:12→20:46)
[2022-11-06] MEDS: methylPREDNISolone SOD SUCC 40 MG/ML VIAL IV SCH ×2 (09:14→20:46)
[2022-11-06] MEDS: MORPHINE SULFATE 2 MG/1 ML DISP.SYRIN IV PRN (10:52)
[2022-11-06] MEDS ORDERED: METOPROLOL TARTRATE 5 MG/5 ML VIAL IVP STA (11:52)
--- NOTE | 2022-11-06 12:06 | NUR ---
1200- DR. RICKS CALLED WITH ORDER. METOPROLOL 5 MG IV GIVEN AND WITH ORDER TO START AMIODARONE 150MG IV BOLUS THEN START IV DRIP 1MH/HR.
[2022-11-06] MEDS ORDERED: AMIODARONE HCL IV 150 MG in IV DEXTROSE 5% 100 ML IV ONE (12:15)
[2022-11-06] MEDS ORDERED: FLUCONAZOLE 200 MG/NS 100ML IV 200 MG in PREMIXED 1 EACH IV SCH (12:15)
[2022-11-06] MEDS: AMIODARONE HCL IV 450 MG in IV DEXTROSE 5% 250 ML IV PRN ×2 (12:40→21:19)
--- NOTE | 2022-11-06 12:40 | NUR ---
amiodarone 150 mg iv given then drip 1 mg/hr. infusing to rt ij.3 lumen catheter.site -ok. heart rate-140. 1400 notified heart rate-136 still sinus tach. pt. has no distress voiced. asleep bp-114/72.no doctor order made. close manitoring
[2022-11-06] MEDS: INSULIN REGULAR, HUMAN 300 UNIT/3 ML VIAL SQ PRN (17:27)
--- NOTE | 2022-11-06 18:00 | NUR ---
no distress noted pm care done. repositioned family at bedside
--- NOTE | 2022-11-06 19:00 | NUR ---
reports given .amiodarone drip 0.5 mg/min cont. heart rate-62.
[2022-11-06] MEDS: INSULIN REGULAR, HUMAN 300 UNITS/3 ML VIAL SQ PRN (21:40)
[2022-11-07] VITALS (24 sets, daily range): BP systolic 143–190; BP diastolic 66–96
[2022-11-07] MEDS: ALBUTEROL SULFATE 1.25 MG/3 ML NEBU NEB SCH ×4 (00:43→19:23)
[2022-11-07] MEDS: IPRATROPIUM BROMIDE 0.5 MG/2.5 ML NEBU NEB SCH ×4 (00:43→19:23)
[2022-11-07] MEDS: MICAFUNGIN SODIUM 100 MG in IV NORMAL SALINE 100 ML IV SCH (01:08)
[2022-11-07] MEDS: MORPHINE SULFATE 4 MG/1 ML DISP.SYRIN IV PRN ×2 (01:29→20:43)
[2022-11-07] MEDS: PIPERACILLIN SODIUM/TAZOBACTAM 3.375 G in IV DEXTROSE 5% 100 ML IV SCH ×3 (04:07→21:25)
[2022-11-07 05:11] LABS: HEMATOCRIT 23.9 % (36.7-47.1); MEAN CORPUSCULAR HEMOGLOBIN 27.7 uug (23.8-33.4); MEAN CORPUSCULAR VOLUME 84.9 fL (73.0-96.2); PLATELET COUNT (AUTO) 89 K/uL (152-348)
[2022-11-07 05:31] LABS: ALANINE AMINOTRANSFERASE 73 U/L (16-63); ALKALINE PHOSPHATASE 69 U/L (50-136); ASPARTATE AMINOTRANSFERASE < 5 U/L (15-37); BILIRUBIN,DIRECT 0.1 mg/dL (0.0-0.2); BILIRUBIN,TOTAL 0.4 mg/dL (0.2-1.0); CARBON DIOXIDE 30 mmol/L (21-32); CHLORIDE 107 mmol/L (98-107); CREATININE 1.9 mg/dL (0.6-1.3); GLUCOSE 168 mg/dL (74-106); PHOSPHOROUS 4.7 mg/dL (2.5-4.9); POTASSIUM 2.9 mmol/L (3.5-5.1); UREA NITROGEN, BLOOD 57 mg/dL (7-18)
[2022-11-07 05:40] LABS: BAND % (MANUAL) 3 % (0-10); BASOPHILS % (MANUAL) 0 % (0-2); EOSINOPHILS % (MANUAL) 0 % (0-8); LYMPHOCYTES % (MANUAL) 3 % (20-40); MONOCYTES % (MANUAL) 7 % (2-10); NEUTROPHILS % (MANUAL) 87 % (42-75)
[2022-11-07 06:27] LABS: ABG BASE EXCESS -0.1 mmol/L; ABG HCO3 24.9 mmol/L; ABG PH 7.391 (7.350-7.450); ABG PO2 106.6 mmHg (75.0-100.0); ABG SITE RIGHT RADIAL; ABG TOTAL HEMOGLOBIN 8.4 G/dL (13.5-18.0); MetHb 0.3 % (0.0-1.5); O2Hb 95.6 % (94.0-97.0); VENT MODE BIPAP
[2022-11-07] MEDS: BLOOD SUGAR DIAGNOSTIC 1 EACH STRIP VI SCH ×4 (06:37→21:00)
--- NOTE | 2022-11-07 07:15 | NUR ---
Recieved report from Paco with updates on patients condition. He is no longer on pressors, only amiodorone drip (DCed by Dr Meadows), VSS stable and on BIPAP settings 15/5 16 30%. Pt is awake and oriented no c/o pain except around surgical site when palpated..
--- NOTE | 2022-11-07 07:15 | NUR ---
Dr Meadows saw the patient and I told him about the patient's potassium and he told me that he had already ordered potassium replacement and chenaged amiodorone to PO from IV drip and to DC the clonidine patch (DCed by Sang).
[2022-11-07] MEDS: POTASSIUM CHLORIDE 50 ML IV SCH ×4 (07:58→11:03)
[2022-11-07] MEDS: methylPREDNISolone SOD SUCC 40 MG/ML VIAL IV SCH (08:14)
[2022-11-07] MEDS: PANTOPRAZOLE SODIUM 40 MG VIAL IV SCH ×2 (08:15→21:25)
[2022-11-07] MEDS: FUROSEMIDE 20 MG TABLET PO SCH (08:15)
[2022-11-07] MEDS: AMIODARONE HCL 200 MG TABLET PO SCH ×2 (08:15→21:25)
[2022-11-07] MEDS: CARVEDILOL 6.25 MG TABLET PO SCH ×2 (08:16→17:18)
[2022-11-07 08:46] LABS: ABG BASE EXCESS 0.4 mmol/L; ABG PCO2 52.3 mmHg (35.0-45.0); ABG PO2 86.8 mmHg (75.0-100.0); ABG SITE RIGHT RADIAL; ABG TOTAL HEMOGLOBIN 11.5 G/dL (13.5-18.0); MetHb 0.3 % (0.0-1.5); O2Hb 93.4 % (94.0-97.0); VENT MODE Nasal Cannula
[2022-11-07] MEDS ORDERED: VANCOMYCIN IV 500 MG in IV DEXTROSE 5% 100 ML IV ONE (11:00)
[2022-11-07] MEDS: INSULIN REGULAR, HUMAN 300 UNIT/3 ML VIAL SQ PRN (16:29)
[2022-11-07] MEDS: ACETAMINOPHEN 325 MG TABLET PO PRN (21:25)
[2022-11-08] VITALS (24 sets, daily range): BP systolic 131–194; BP diastolic 73–99
[2022-11-08] MEDS: IPRATROPIUM BROMIDE 0.5 MG/2.5 ML NEBU NEB SCH ×4 (00:47→19:39)
[2022-11-08] MEDS: ALBUTEROL SULFATE 1.25 MG/3 ML NEBU NEB SCH ×4 (00:47→19:39)
[2022-11-08] MEDS: MICAFUNGIN SODIUM 100 MG in IV NORMAL SALINE 100 ML IV SCH (02:26)
[2022-11-08] MEDS: MORPHINE SULFATE 4 MG/1 ML DISP.SYRIN IV PRN ×3 (03:09→20:09)
[2022-11-08] MEDS: PIPERACILLIN SODIUM/TAZOBACTAM 3.375 G in IV DEXTROSE 5% 100 ML IV SCH ×3 (04:10→21:50)
[2022-11-08 06:13] LABS: HEMATOCRIT 25.1 % (36.7-47.1); MEAN CORPUSCULAR HEMOGLOBIN 27.7 uug (23.8-33.4); MEAN CORPUSCULAR VOLUME 86.2 fL (73.0-96.2); PLATELET COUNT (AUTO) 92 K/uL (152-348)
[2022-11-08 06:23] LABS: POTASSIUM 3.2 mmol/L (3.5-5.1)
[2022-11-08 06:24] LABS: CREATININE 1.8 mg/dL (0.6-1.3); MAGNESIUM 1.9 mg/dL (1.8-2.4); PHOSPHOROUS 3.6 mg/dL (2.5-4.9)
--- NOTE | 2022-11-08 07:25 | NUR ---
REPORT GIVEN TO FRITZ HANDY
[2022-11-08] MEDS: BLOOD SUGAR DIAGNOSTIC 1 EACH STRIP VI SCH ×4 (07:31→21:00)
[2022-11-08] MEDS: PANTOPRAZOLE SODIUM 40 MG VIAL IV SCH ×2 (08:38→21:39)
[2022-11-08] MEDS: methylPREDNISolone SOD SUCC 40 MG/ML VIAL IV SCH (08:38)
[2022-11-08] MEDS: FUROSEMIDE 20 MG TABLET PO SCH (08:38)
[2022-11-08] MEDS: AMIODARONE HCL 200 MG TABLET PO SCH ×2 (08:38→21:39)
[2022-11-08 08:39] LABS: ABG BASE EXCESS 1.3 mmol/L; ABG HCO3 28.8 mmol/L; ABG PCO2 62.6 mmHg (35.0-45.0); ABG PH 7.281 (7.350-7.450); ABG PO2 111.7 mmHg (75.0-100.0); ABG SITE RIGHT RADIAL; ABG TOTAL HEMOGLOBIN 9.2 G/dL (13.5-18.0); COHb 0.8 % (0.5-1.5); MetHb 0.3 % (0.0-1.5); O2Hb 95.8 % (94.0-97.0); VENT MODE Nasal Cannula
[2022-11-08] MEDS: CARVEDILOL 6.25 MG TABLET PO SCH (08:39)
[2022-11-08] MEDS: POTASSIUM CHLORIDE 50 ML IV SCH ×3 (09:50→12:22)
[2022-11-08] MEDS ORDERED: CARVEDILOL 6.25 MG TABLET PO ONE (10:30)
[2022-11-08] MEDS: VANCOMYCIN IV 500 MG in IV DEXTROSE 5% 100 ML IV SCH (14:56)
[2022-11-08] MEDS: INSULIN REGULAR, HUMAN 300 UNIT/3 ML VIAL SQ PRN (18:28)
[2022-11-08] MEDS ORDERED: hydrALAZINE HCL 25 MG TABLET PO PRN ×2 (20:00→21:30)
[2022-11-08] MEDS ORDERED: hydrALAZINE HCL 25 MG TABLET ONE (20:02)
[2022-11-08] MEDS: CARVEDILOL 12.5 MG TABLET PO SCH (21:40)
[2022-11-09] VITALS (21 sets, daily range): BP systolic 92–193; BP diastolic 48–93
[2022-11-09] MEDS: hydrALAZINE HCL 20 MG/1 ML VIAL IV PRN ×2 (00:24→20:10)
[2022-11-09] MEDS: MORPHINE SULFATE 4 MG/1 ML DISP.SYRIN IV PRN ×2 (00:30→18:55)
[2022-11-09] MEDS: IPRATROPIUM BROMIDE 0.5 MG/2.5 ML NEBU NEB SCH ×4 (00:52→19:52)
[2022-11-09] MEDS: ALBUTEROL SULFATE 1.25 MG/3 ML NEBU NEB SCH ×4 (00:52→19:52)
[2022-11-09] MEDS: MICAFUNGIN SODIUM 100 MG in IV NORMAL SALINE 100 ML IV SCH (01:30)
--- NOTE | 2022-11-09 02:00 | NUR ---
Heart rate 135. D. Darrius, N.P. notified. See new orders.
[2022-11-09] MEDS ORDERED: IV NORMAL SALINE 500 ML IV ONE (02:45)
[2022-11-09] MEDS ORDERED: DILTIAZEM HCL 25 MG IV IV ONE ×2 (03:15→04:30)
[2022-11-09] MEDS: PIPERACILLIN SODIUM/TAZOBACTAM 3.375 G in IV DEXTROSE 5% 100 ML IV SCH ×3 (04:37→20:25)
[2022-11-09 05:46] LABS: HEMATOCRIT 26.7 % (36.7-47.1); MEAN CORPUSCULAR HEMOGLOBIN 27.8 uug (23.8-33.4); MEAN CORPUSCULAR VOLUME 86.6 fL (73.0-96.2); PLATELET COUNT (AUTO) 110 K/uL (152-348)
[2022-11-09 06:04] LABS: BILIRUBIN,TOTAL 0.4 mg/dL (0.2-1.0); CREATININE 1.6 mg/dL (0.6-1.3); MAGNESIUM 1.8 mg/dL (1.8-2.4); NEUTROPHILS % (MANUAL) 0 % (42-75); PHOSPHOROUS 3.1 mg/dL (2.5-4.9); POTASSIUM 3.4 mmol/L (3.5-5.1); TOTAL PROTEIN, SERUM 5.1 g/dL (6.4-8.2)
--- NOTE | 2022-11-09 06:30 | NUR ---
Zan Rizo N.P. notified. Con't 132 heart rate; to wait / cardiology visit. Also, note other orders / increased heart rate.
[2022-11-09] MEDS ORDERED: IV NORMAL SALINE 500 ML BAG IV PRN (07:45)
[2022-11-09] MEDS: BLOOD SUGAR DIAGNOSTIC 1 EACH STRIP VI SCH ×4 (08:43→20:52)
[2022-11-09] MEDS: methylPREDNISolone SOD SUCC 40 MG/ML VIAL IV SCH (09:30)
[2022-11-09] MEDS: PANTOPRAZOLE SODIUM 40 MG VIAL IV SCH ×2 (09:30→20:29)
[2022-11-09] MEDS: FUROSEMIDE 20 MG TABLET PO SCH (09:30)
[2022-11-09] MEDS: CARVEDILOL 12.5 MG TABLET PO SCH ×2 (09:31→20:30)
[2022-11-09] MEDS: AMIODARONE HCL 200 MG TABLET PO SCH ×2 (09:31→20:30)
[2022-11-09 10:11] LABS: ABG BASE EXCESS 1.3 mmol/L; ABG HCO3 27.5 mmol/L; ABG PCO2 51.5 mmHg (35.0-45.0); ABG PH 7.345 (7.350-7.450); ABG PO2 60.1 mmHg (75.0-100.0); ABG SITE RIGHT RADIAL; ABG TOTAL HEMOGLOBIN 9.7 G/dL (13.5-18.0); COHb 0.3 % (0.5-1.5); MetHb 0.3 % (0.0-1.5); O2Hb 87.9 % (94.0-97.0); VENT MODE Nasal Cannula
[2022-11-09] MEDS ORDERED: POTASSIUM CHLORIDE 50 ML IV SCH (12:30)
[2022-11-09] MEDS ORDERED: DIATR MEGLU/DIATRIZOATE SODIUM 30 ML BOTTLE ONE (14:46)
[2022-11-09] MEDS: VANCOMYCIN IV 500 MG in IV DEXTROSE 5% 100 ML IV SCH (15:23)
[2022-11-09] MEDS: INSULIN REGULAR, HUMAN 300 UNITS/3 ML VIAL SQ PRN (21:11)
[2022-11-10] VITALS (25 sets, daily range): BP systolic 122–171; BP diastolic 41–124
[2022-11-10] MEDS: MICAFUNGIN SODIUM 100 MG in IV NORMAL SALINE 100 ML IV SCH (01:10)
[2022-11-10] MEDS: IPRATROPIUM BROMIDE 0.5 MG/2.5 ML NEBU NEB SCH ×4 (01:16→19:41)
[2022-11-10] MEDS: ALBUTEROL SULFATE 1.25 MG/3 ML NEBU NEB SCH ×4 (01:17→19:41)
[2022-11-10] MEDS: hydrALAZINE HCL 20 MG/1 ML VIAL IV PRN ×2 (02:32→17:26)
[2022-11-10] MEDS: MORPHINE SULFATE 4 MG/1 ML DISP.SYRIN IV PRN ×3 (03:42→17:35)
[2022-11-10] MEDS: PIPERACILLIN SODIUM/TAZOBACTAM 3.375 G in IV DEXTROSE 5% 100 ML IV SCH ×2 (04:50→12:25)
[2022-11-10 05:04] LABS: HEMATOCRIT 29.3 % (36.7-47.1); MEAN CORPUSCULAR HEMOGLOBIN 27.7 uug (23.8-33.4); MEAN CORPUSCULAR VOLUME 86.1 fL (73.0-96.2); PLATELET COUNT (AUTO) 139 K/uL (152-348)
[2022-11-10 05:58] LABS: CREATININE 1.5 mg/dL (0.6-1.3); MAGNESIUM 1.9 mg/dL (1.8-2.4); PHOSPHOROUS 2.8 mg/dL (2.5-4.9); POTASSIUM 3.2 mmol/L (3.5-5.1)
[2022-11-10] MEDS ORDERED: IPRATROPIUM BROMIDE 0.5 MG/2.5 ML NEBU ONE (07:14)
[2022-11-10] MEDS ORDERED: ALBUTEROL SULFATE 1.25 MG/3 ML NEBU ONE (07:14)
--- NOTE | 2022-11-10 08:00 | NUR ---
Patient seen by Efficiency Engineer Dr. Haynes report given see order hx.
[2022-11-10] MEDS: BLOOD SUGAR DIAGNOSTIC 1 EACH STRIP VI SCH ×4 (08:23→21:00)
--- NOTE | 2022-11-10 08:23 | NUR ---
Received pt. On BIPAP rate of 16, 15/5, FIO2 30%. saturation of 99%. Pt. AAOx4 follows commands, On cafeteria monitor NSR. Rate in the 70's-80's. SBP within normal limits. IV line patent. SPC with clear sedimented output. Over all skin C.D.I.Will continue with care plan.
[2022-11-10] MEDS ORDERED: FUROSEMIDE 20 MG TABLET ONE (08:36)
[2022-11-10] MEDS ORDERED: methylPREDNISolone SOD SUCC 40 MG/ML VIAL ONE (08:36)
[2022-11-10] MEDS ORDERED: PANTOPRAZOLE SODIUM 40 MG VIAL ONE (08:36)
[2022-11-10] MEDS ORDERED: CARVEDILOL 12.5 MG TABLET ONE (08:36)
[2022-11-10] MEDS ORDERED: AMIODARONE HCL 200 MG TABLET ONE (08:36)
--- NOTE | 2022-11-10 09:00 | NUR ---
Cardiology Dr. Calloway in the unit to see and examine pt. report given, with orders to continue with care plan received.
[2022-11-10] MEDS: PANTOPRAZOLE SODIUM 40 MG VIAL IV SCH ×2 (09:16→21:57)
[2022-11-10] MEDS: methylPREDNISolone SOD SUCC 40 MG/ML VIAL IV SCH (09:16)
[2022-11-10] MEDS: AMIODARONE HCL 200 MG TABLET PO SCH ×2 (09:17→21:00)
[2022-11-10] MEDS: FUROSEMIDE 20 MG TABLET PO SCH (09:18)
[2022-11-10] MEDS: CARVEDILOL 12.5 MG TABLET PO SCH ×2 (09:18→21:00)
[2022-11-10] MEDS ORDERED: POTASSIUM CHLORIDE 20 MEQ POWDER PACKET PO ONE (09:30)
[2022-11-10] MEDS ORDERED: POTASSIUM CHLORIDE 50 ML IV SCH (09:30)
[2022-11-10] MEDS ORDERED: POTASSIUM CHLORIDE 20 MEQ POWDER PACKET ONE (12:14)
[2022-11-10] MEDS ORDERED: MORPHINE SULFATE 4 MG/1 ML DISP.SYRIN ONE (13:13)
[2022-11-10] MEDS: POTASSIUM CHLORIDE 50 ML IV SCH ×4 (16:29→21:54)
--- NOTE | 2022-11-10 17:21 | NUR ---
TAken off BIPAP as requested by pt.
--- NOTE | 2022-11-10 18:59 | NUR ---
Right ILENE 20mls Left ILENE 50mls. Ileostomy 30ml's liquid stool.
[2022-11-10] MEDS: CEFEPIME HCL 2 G in IV DEXTROSE 5% 100 ML IV SCH (21:55)
[2022-11-10] MEDS: METRONIDAZOLE 500 MG/NS 100ML 500 MG in PREMIXED 1 EACH IV SCH (22:07)
[2022-11-11] VITALS (24 sets, daily range): BP systolic 137–180; BP diastolic 69–97
[2022-11-11] MEDS: MORPHINE SULFATE 4 MG/1 ML DISP.SYRIN IV PRN ×2 (00:17→13:02)
[2022-11-11] MEDS: hydrALAZINE HCL 20 MG/1 ML VIAL IV PRN ×3 (00:18→20:01)
[2022-11-11] MEDS: ALBUTEROL SULFATE 1.25 MG/3 ML NEBU NEB SCH ×4 (00:51→19:23)
[2022-11-11] MEDS: IPRATROPIUM BROMIDE 0.5 MG/2.5 ML NEBU NEB SCH ×4 (00:51→19:23)
[2022-11-11] MEDS: MICAFUNGIN SODIUM 100 MG in IV NORMAL SALINE 100 ML IV SCH (02:53)
[2022-11-11 05:10] LABS: HEMATOCRIT 31.6 % (36.7-47.1); MEAN CORPUSCULAR HEMOGLOBIN 27.1 uug (23.8-33.4); MEAN CORPUSCULAR VOLUME 87.4 fL (73.0-96.2); PLATELET COUNT (AUTO) 173 K/uL (152-348)
[2022-11-11] MEDS: METRONIDAZOLE 500 MG/NS 100ML 500 MG in PREMIXED 1 EACH IV SCH ×3 (05:12→22:03)
[2022-11-11 05:50] LABS: BILIRUBIN,DIRECT 0.1 mg/dL (0.0-0.2); BILIRUBIN,TOTAL 0.4 mg/dL (0.2-1.0); CREATININE 1.5 mg/dL (0.6-1.3); MAGNESIUM 1.9 mg/dL (1.8-2.4); PHOSPHOROUS 3.5 mg/dL (2.5-4.9); TOTAL PROTEIN, SERUM 5.9 g/dL (6.4-8.2)
[2022-11-11 06:06] LABS: *ALPHA-1-GLOBULIN, 24 2.2 % (.); *ALPHA-2-GLOBULIN, U24 27.1 % (.); *BETA GLOBULIN,24 42.9 % (.); *PEU ALBUMIN, 24 10.2 % (.); *PEUGAMMA GLOBULIN, 24 17.6 % (.); *PROTEIN, TOTAL, UR 24 HR 42.8 mg/dL (Not Estab.)
--- NOTE | 2022-11-11 07:03 | NUR ---
Chemistry results reported to sales relationship manager Rj Sales D.
[2022-11-11] MEDS: BLOOD SUGAR DIAGNOSTIC 1 EACH STRIP VI SCH ×4 (07:30→21:00)
[2022-11-11 07:55] LABS: ABG BASE EXCESS 2.2 mmol/L; ABG HCO3 28.6 mmol/L; ABG PCO2 53.2 mmHg (35.0-45.0); ABG PH 7.348 (7.350-7.450); ABG PO2 77.3 mmHg (75.0-100.0); ABG SITE RIGHT BRACHIAL; ABG TOTAL HEMOGLOBIN 10.9 G/dL (13.5-18.0); COHb 0.9 % (0.5-1.5); MetHb 0.3 % (0.0-1.5); O2Hb 92.9 % (94.0-97.0); VENT MODE Nasal Cannula
--- NOTE | 2022-11-11 08:31 | NUR ---
0800 Dr. Calloway rounding in CCU aware Pt failed swallow evaluation unable to swallow Amoiodore 400 mg PO and Coreg PO. Dr Haynes recommendation no NGT placement. 1300 Dr Calloway was notified Amiodore and Coreg on hold. October MD order medication drip if A fibrillation occurs. Continue monitoring condition.
[2022-11-11] MEDS: AMIODARONE HCL 200 MG TABLET PO SCH ×3 (11:00→20:19)
[2022-11-11] MEDS: CARVEDILOL 12.5 MG TABLET PO SCH ×3 (11:00→20:20)
[2022-11-11] MEDS: methylPREDNISolone SOD SUCC 40 MG/ML VIAL IV SCH (11:05)
[2022-11-11] MEDS: CEFEPIME HCL 2 G in IV DEXTROSE 5% 100 ML IV SCH ×2 (11:05→20:05)
[2022-11-11] MEDS: PANTOPRAZOLE SODIUM 40 MG VIAL IV SCH ×2 (11:09→20:14)
[2022-11-11] MEDS ORDERED: IV D5W 1000ML 1,000 ML IV ONE (12:00)
--- NOTE | 2022-11-11 19:35 | NUR ---
Pt received on BIPAP requesting to remove it. Pt on oxygen 2 LPM N/C abdominal dressing in place jpx2 bulb suction HOB elevated Pt denies any pain suprapubic catheter in place. Pt was reposition without any discomfort. Business Banking Manager came and order D5 W 75 cc/hr for NA 156. Dr Haynes no recommended the insertion of NGT. ILENE LT 20 ML, ILENE RT 25 ML COLOSTOMY 50 ML. wOUND INCISION DONE. Suprapubic catheter secure. Endorse care to incoming nurse
[2022-11-11] MEDS: MORPHINE SULFATE 2 MG/1 ML DISP.SYRIN IV PRN ×2 (20:15→20:56)
--- NOTE | 2022-11-11 21:00 | NUR ---
pt's bp was high and given hydralazine and morphine for pain with no effect on his bp. SBP consistently above 160. Called Dr director of teacher education and received new order for clonidine patch.
[2022-11-11] MEDS ORDERED: CLONIDINE-TTS 1 PATCH TD ONE ×2 (22:00→22:30)
[2022-11-11] MEDS ORDERED: CLONIDINE TTS 2 PATCH TD ONE (22:35)
[2022-11-11] MEDS: INSULIN REGULAR, HUMAN 300 UNITS/3 ML VIAL SQ PRN (23:07)
[2022-11-12] VITALS (25 sets, daily range): BP systolic 114–199; BP diastolic 67–117
[2022-11-12] MEDS: hydrALAZINE HCL 20 MG/1 ML VIAL IV PRN ×2 (00:24→04:04)
[2022-11-12] MEDS: ALBUTEROL SULFATE 1.25 MG/3 ML NEBU NEB SCH ×4 (01:26→19:55)
[2022-11-12] MEDS: IPRATROPIUM BROMIDE 0.5 MG/2.5 ML NEBU NEB SCH ×4 (01:26→19:55)
[2022-11-12] MEDS: MICAFUNGIN SODIUM 100 MG in IV NORMAL SALINE 100 ML IV SCH (01:35)
[2022-11-12] MEDS: MORPHINE SULFATE 4 MG/1 ML DISP.SYRIN IV PRN ×2 (02:10→20:34)
--- NOTE | 2022-11-12 03:28 | NUR ---
hydralazine, morphine and clonidine patch had min effect on bp. Hector Rizo NP contacted and awaiting response.
[2022-11-12] MEDS: METRONIDAZOLE 500 MG/NS 100ML 500 MG in PREMIXED 1 EACH IV SCH ×3 (05:11→21:36)
[2022-11-12 05:12] LABS: HEMATOCRIT 31.1 % (36.7-47.1); MEAN CORPUSCULAR HEMOGLOBIN 27.2 uug (23.8-33.4); PLATELET COUNT (AUTO) 179 K/uL (152-348)
[2022-11-12 05:25] LABS: CREATININE 1.4 mg/dL (0.6-1.3); MAGNESIUM 1.8 mg/dL (1.8-2.4); PHOSPHOROUS 2.1 mg/dL (2.5-4.9); POTASSIUM 3.3 mmol/L (3.5-5.1)
--- NOTE | 2022-11-12 06:14 | NUR ---
right artur drain = 15 ml left artur drain = 16 ml uo 400 ml still awaiting call from operations forester regarding pt's blood pressure.
--- NOTE | 2022-11-12 07:00 | NUR ---
Received pt. on BIPAP rate of 16, 15/5 FIO2 30% as per RT report patient was on BIPAP for the night saturataion of 97%. Cardiac-bolaños pt. on NSR SBP above 160's MD notified according to reports. SPC draining fede output. MLA surgical incision covered with abd pads no s/of complications noted. ILENE to right and left abdominal area to bulb suction. Patient AAOx3. will continue with care plan.
[2022-11-12] MEDS: BLOOD SUGAR DIAGNOSTIC 1 EACH STRIP VI SCH ×4 (07:30→21:00)
--- NOTE | 2022-11-12 08:30 | NUR ---
Pulmonary services Dr. Haynes in the unit to follow up on pt.
--- NOTE | 2022-11-12 08:41 | NUR ---
Blood glucose not done no equipment available laboratory personnel called and awaiting for it to be fixed.
[2022-11-12 08:46] LABS: ABG BASE EXCESS 1.3 mmol/L; ABG HCO3 26.2 mmol/L; ABG PCO2 42.3 mmHg (35.0-45.0); ABG PH 7.409 (7.350-7.450); ABG PO2 135.9 mmHg (75.0-100.0); ABG SITE RIGHT RADIAL; ABG TOTAL HEMOGLOBIN 10.8 G/dL (13.5-18.0); COHb 0.7 % (0.5-1.5); MetHb 0.3 % (0.0-1.5); O2Hb 97.2 % (94.0-97.0); VENT MODE Nasal Cannula
[2022-11-12] MEDS: methylPREDNISolone SOD SUCC 40 MG/ML VIAL IV SCH (08:53)
[2022-11-12] MEDS: PANTOPRAZOLE SODIUM 40 MG VIAL IV SCH ×2 (08:53→21:26)
[2022-11-12] MEDS: CARVEDILOL 12.5 MG TABLET PO SCH ×2 (08:54→21:00)
[2022-11-12] MEDS: AMIODARONE HCL 200 MG TABLET PO SCH ×2 (08:55→21:00)
[2022-11-12] MEDS: CEFEPIME HCL 2 G in IV DEXTROSE 5% 100 ML IV SCH ×2 (08:56→20:35)
--- NOTE | 2022-11-12 09:00 | NUR ---
With morning medications today pt. show signs and symptoms of aspiration, attending notified. See order hx.
--- NOTE | 2022-11-12 09:15 | NUR ---
Cardiology services, Dr. Calloway in the unit to follow up on pt.
--- NOTE | 2022-11-12 09:20 | NUR ---
Dr. oneil informed of low glucose level order received.
--- NOTE | 2022-11-12 09:25 | NUR ---
Glucose level of 60 patient given orange juice with meds. patient s/s of asp. glucose rechecked and now 65 1 amp of destrose given.
[2022-11-12] MEDS ORDERED: POTASSIUM PHOSPHATE MM 15 MMOL in IV NORMAL SALINE 250 ML IV ONE (10:00)
--- NOTE | 2022-11-12 10:09 | NUR ---
Swallow senior patient account representative in the unit as reported pt. failed swallow evaluation. but ok for sporadic ice-chips.
[2022-11-12] MEDS: IV D5W 1000ML 1,000 ML IV PRN ×2 (10:26→23:25)
--- NOTE | 2022-11-12 10:37 | NUR ---
Patient was seen for swallow re-assessment this AM. He is oriented x4, aphonic, likely due to intubation/extubation.He is off BIPAP on 2L oxygen with SpO2 at 92% during my evaluation. Patient's breathing is somewhat labored at rest. Oral care provided prior to PO. PO trials of ice chips and thin liquids via tsp/cup were provided. Patient's swallow function continues to demonstrate severe deficits with disorganized and prolonged bolus manipulation, delay in A-P transit, suspected premature spillage, delayed swallow initiation, and delayed, unproductive cough post swallow. Patient is high aspiration risk and must be NPO with alternative ways of nutrition. Limited amounts of ice chips are ok for oral gratification and to maintain swallow function. Vigorous oral care and strict aspiration precautions must be implemented to lessen some risk. SENIOR BUSINESS ARCHITECT to f/u to monitor PO tolerance with oral gratifcation. RN notified of recommendations.
--- NOTE | 2022-11-12 13:30 | NUR ---
Patient with c/of feeling short of breath with labor breathing denture packer notified orders for high flow received and implemented. Addendum: 11/12/22 at 1618 by MESFIN WAGNER RN Correct time of the above intervention 8544.
--- NOTE | 2022-11-12 16:15 | NUR ---
Patient remains complaining feeling short of breath RT team notified to place pt. back on BIPAP.
[2022-11-13] VITALS (24 sets, daily range): BP systolic 116–192; BP diastolic 67–99
[2022-11-13] MEDS: IPRATROPIUM BROMIDE 0.5 MG/2.5 ML NEBU NEB SCH ×4 (01:40→19:36)
[2022-11-13] MEDS: ALBUTEROL SULFATE 1.25 MG/3 ML NEBU NEB SCH ×4 (01:40→19:36)
[2022-11-13] MEDS: MICAFUNGIN SODIUM 100 MG in IV NORMAL SALINE 100 ML IV SCH (02:26)
[2022-11-13] MEDS: hydrALAZINE HCL 20 MG/1 ML VIAL IV PRN ×2 (03:57→20:41)
[2022-11-13 05:16] LABS: HEMATOCRIT 27.3 % (36.7-47.1); MEAN CORPUSCULAR HEMOGLOBIN 27.4 uug (23.8-33.4); MEAN CORPUSCULAR VOLUME 86.6 fL (73.0-96.2); PLATELET COUNT (AUTO) 133 K/uL (152-348)
[2022-11-13] MEDS: METRONIDAZOLE 500 MG/NS 100ML 500 MG in PREMIXED 1 EACH IV SCH ×3 (05:27→22:05)
[2022-11-13 05:33] LABS: CREATININE 1.4 mg/dL (0.6-1.3); MAGNESIUM 1.7 mg/dL (1.8-2.4); PHOSPHOROUS 2.6 mg/dL (2.5-4.9); POTASSIUM 3.5 mmol/L (3.5-5.1)
[2022-11-13] MEDS: BLOOD SUGAR DIAGNOSTIC 1 EACH STRIP VI SCH ×4 (06:15→21:59)
--- NOTE | 2022-11-13 07:20 | NUR ---
REPORT GIVEN TO FRITZ HANDY, REQUESTING A PSYCH CONSULT FOR
[2022-11-13] MEDS: CEFEPIME HCL 2 G in IV DEXTROSE 5% 100 ML IV SCH ×2 (08:47→21:53)
[2022-11-13] MEDS: methylPREDNISolone SOD SUCC 40 MG/ML VIAL IV SCH (08:47)
[2022-11-13] MEDS: PANTOPRAZOLE SODIUM 40 MG VIAL IV SCH ×2 (08:47→22:05)
[2022-11-13] MEDS: CARVEDILOL 12.5 MG TABLET PO SCH ×3 (08:48→22:04)
[2022-11-13] MEDS: AMIODARONE HCL 200 MG TABLET PO SCH ×3 (08:48→22:04)
[2022-11-13] MEDS: MAGNESIUM SULFATE/D5W 100 ML IV SCH ×2 (10:12→11:12)
--- NOTE | 2022-11-13 11:00 | NUR ---
Spoke with patient about the need for inserting an NG tube and patient refused. I will check back again later to see if patient will change his mind
[2022-11-13] MEDS: IV D5W 1000ML 1,000 ML IV PRN (12:11)
--- NOTE | 2022-11-13 15:07 | NUR ---
Patient is still refusing NG tube insertion.
--- NOTE | 2022-11-13 15:29 | NUR ---
Notified Dr Rodríguez about pt refusing multiple times for NGT. No new orders recieved.
[2022-11-13] MEDS: QUETIAPINE FUMARATE 25 MG TABLET NG SCH (16:45)
--- NOTE | 2022-11-13 16:45 | NUR ---
Patient refusing bathing and changing wound dressing change
--- NOTE | 2022-11-13 21:00 | NUR ---
Refused Cored & Amiodarone. Dr Galeano notified.
[2022-11-13] MEDS: INSULIN REGULAR, HUMAN 300 UNITS/3 ML VIAL SQ PRN (21:53)
[2022-11-14] VITALS (24 sets, daily range): BP systolic 91–174; BP diastolic 56–107
[2022-11-14] MEDS: IPRATROPIUM BROMIDE 0.5 MG/2.5 ML NEBU NEB SCH ×4 (00:49→21:08)
[2022-11-14] MEDS: ALBUTEROL SULFATE 1.25 MG/3 ML NEBU NEB SCH ×4 (00:49→21:09)
[2022-11-14] MEDS: IV D5W 1000ML 1,000 ML IV PRN ×2 (01:00→09:27)
[2022-11-14] MEDS: MICAFUNGIN SODIUM 100 MG in IV NORMAL SALINE 100 ML IV SCH (02:28)
[2022-11-14] MEDS: MORPHINE SULFATE 4 MG/1 ML DISP.SYRIN IV PRN ×2 (02:44→19:38)
[2022-11-14] MEDS: hydrALAZINE HCL 20 MG/1 ML VIAL IV PRN (03:19)
[2022-11-14] MEDS: METRONIDAZOLE 500 MG/NS 100ML 500 MG in PREMIXED 1 EACH IV SCH ×3 (05:16→23:54)
[2022-11-14 05:35] LABS: HEMATOCRIT 26.8 % (36.7-47.1); MEAN CORPUSCULAR HEMOGLOBIN 27.2 uug (23.8-33.4); MEAN CORPUSCULAR VOLUME 85.5 fL (73.0-96.2); PLATELET COUNT (AUTO) 160 K/uL (152-348)
[2022-11-14 05:43] LABS: CREATININE 1.3 mg/dL (0.6-1.3); MAGNESIUM 2.1 mg/dL (1.8-2.4)
[2022-11-14] MEDS: POTASSIUM CHLORIDE 50 ML IV SCH ×4 (08:28→11:41)
[2022-11-14] MEDS: BLOOD SUGAR DIAGNOSTIC 1 EACH STRIP VI SCH ×4 (08:28→21:00)
[2022-11-14] MEDS: QUETIAPINE FUMARATE 25 MG TABLET NG SCH ×2 (09:00→17:00)
[2022-11-14] MEDS: CARVEDILOL 12.5 MG TABLET PO SCH ×2 (09:00→21:00)
[2022-11-14] MEDS: AMIODARONE HCL 200 MG TABLET PO SCH ×2 (09:00→21:24)
[2022-11-14] MEDS: CEFEPIME HCL 2 G in IV DEXTROSE 5% 100 ML IV SCH ×2 (09:24→21:22)
[2022-11-14] MEDS: methylPREDNISolone SOD SUCC 40 MG/ML VIAL IV SCH (09:24)
[2022-11-14] MEDS: PANTOPRAZOLE SODIUM 40 MG VIAL IV SCH ×2 (09:28→21:23)
[2022-11-14] MEDS: INSULIN REGULAR, HUMAN 300 UNIT/3 ML VIAL SQ PRN (17:21)
[2022-11-15] VITALS (24 sets, daily range): BP systolic 89–177; BP diastolic 58–93
[2022-11-15] MEDS: BLOOD SUGAR DIAGNOSTIC 1 EACH STRIP VI SCH ×4 (00:01→16:30)
[2022-11-15] MEDS: IV D5W 1000ML 1,000 ML IV PRN ×2 (01:01→14:22)
[2022-11-15] MEDS: IPRATROPIUM BROMIDE 0.5 MG/2.5 ML NEBU NEB SCH ×4 (01:04→22:05)
[2022-11-15] MEDS: ALBUTEROL SULFATE 1.25 MG/3 ML NEBU NEB SCH ×4 (01:04→22:05)
[2022-11-15] MEDS: hydrALAZINE HCL 20 MG/1 ML VIAL IV PRN ×2 (01:06→22:16)
[2022-11-15] MEDS: MORPHINE SULFATE 4 MG/1 ML DISP.SYRIN IV PRN ×2 (01:07→10:45)
[2022-11-15] MEDS: MICAFUNGIN SODIUM 100 MG in IV NORMAL SALINE 100 ML IV SCH (02:20)
[2022-11-15 05:34] LABS: MEAN CORPUSCULAR HEMOGLOBIN 27.1 uug (23.8-33.4); MEAN CORPUSCULAR VOLUME 85.3 fL (73.0-96.2); PLATELET COUNT (AUTO) 133 K/uL (152-348)
[2022-11-15 05:41] LABS: CREATININE 1.3 mg/dL (0.6-1.3); POTASSIUM 3.4 mmol/L (3.5-5.1)
[2022-11-15] MEDS: METRONIDAZOLE 500 MG/NS 100ML 500 MG in PREMIXED 1 EACH IV SCH ×3 (06:50→21:15)
--- NOTE | 2022-11-15 07:10 | NUR ---
Received pt. on BIPAP rate of 16, 15/5 30% FIO2. Patient with c/of SOB saturation 98%. Cardiac-bolaños patient on NSR SBP within normal. SPC with fede output. Midline abdominal surgical incision. c.d.i. Right TLC 3L patent. Will continue with care plan.
--- NOTE | 2022-11-15 07:41 | NUR ---
END OF SHIFT SUMMARY - Luisito Report recieved from [facility] RN. I assumed care of the patient with Vital signs stable. Pt appears disintrested in everything. He is sullen and does not want to communicate. Pt requested morphine for pain which was administered with good effect. Pt fell asleep but was easily arousable. Pt insisted on having the Bipap mask on. Respiratory Therapist at beside to treat the patient. Pt is not enthusiastic about moving and is apt to refuse all treatment except for morphine IV. Pt asked for a pen and paper and he asked that the paper be left with him. He was turned and repositioned for comfort and a second dose of morphine was administered IV. Pt slept comfortably after that.
[2022-11-15] MEDS ORDERED: TPN/PPN PER PHARMACY IV PRN (08:00)
[2022-11-15] MEDS: PANTOPRAZOLE SODIUM 40 MG VIAL IV SCH ×2 (08:25→20:45)
[2022-11-15] MEDS: methylPREDNISolone SOD SUCC 40 MG/ML VIAL IV SCH (08:25)
[2022-11-15] MEDS: AMIODARONE HCL 200 MG TABLET PO SCH ×2 (08:25→20:45)
[2022-11-15] MEDS: QUETIAPINE FUMARATE 25 MG TABLET NG SCH ×2 (08:25→17:00)
[2022-11-15] MEDS: CARVEDILOL 12.5 MG TABLET PO SCH ×2 (08:26→20:45)
[2022-11-15] MEDS: CEFEPIME HCL 2 G in IV DEXTROSE 5% 100 ML IV SCH ×2 (08:27→20:45)
--- NOTE | 2022-11-15 09:30 | NUR ---
Patient seen by attending report given orders and at this time N.P. notified Dr. Dumas to see patient.
--- NOTE | 2022-11-15 10:06 | NUR ---
Patient seen by Dr. Dumas report given. As stated by . "difficult to interview pt. on bipap" informed pt. unable to swallow failed swallow eval.
--- NOTE | 2022-11-15 11:20 | NUR ---
Cardiology services Dr. Calloway in the unit to examine pt. report given see order hx.,
[2022-11-15] MEDS: POTASSIUM CHLORIDE 50 ML IV SCH ×4 (11:55→14:56)
--- NOTE | 2022-11-15 17:09 | NUR ---
A call to Dr. Cuevas pulmonary services and attending Charbel Leonardo to update them on patients desaturation. pt. placed on Highflow and only improved to saturation of 92 for 3 minutes and saturation drop to 79-mid-80's. patient cold to touch, awake, placed on BIPAP. Addendum: 11/15/22 at 1723 by MESFIN WAGNER RN The above note is intended for another pt.
--- NOTE | 2022-11-15 20:46 | NUR ---
Failed swallow eval: can"t take PO meds.
[2022-11-16] VITALS (23 sets, daily range): BP systolic 105–184; BP diastolic 64–98
[2022-11-16] MEDS: IPRATROPIUM BROMIDE 0.5 MG/2.5 ML NEBU NEB SCH ×4 (02:13→19:55)
[2022-11-16] MEDS: ALBUTEROL SULFATE 1.25 MG/3 ML NEBU NEB SCH ×4 (02:14→19:55)
[2022-11-16] MEDS: MICAFUNGIN SODIUM 100 MG in IV NORMAL SALINE 100 ML IV SCH (02:27)
[2022-11-16] MEDS: IV D5W 1000ML 1,000 ML IV PRN ×2 (04:33→11:07)
[2022-11-16 05:33] LABS: HEMATOCRIT 28.1 % (36.7-47.1); MEAN CORPUSCULAR HEMOGLOBIN 26.9 uug (23.8-33.4); MEAN CORPUSCULAR VOLUME 85.5 fL (73.0-96.2); PLATELET COUNT (AUTO) 135 K/uL (152-348)
[2022-11-16 05:46] LABS: CREATININE 1.3 mg/dL (0.6-1.3); MAGNESIUM 1.6 mg/dL (1.8-2.4); PHOSPHOROUS 1.9 mg/dL (2.5-4.9); POTASSIUM 3.9 mmol/L (3.5-5.1)
[2022-11-16 06:08] LABS: NEUTROPHILS % (MANUAL) 0 % (42-75)
[2022-11-16] MEDS: BLOOD SUGAR DIAGNOSTIC 1 EACH STRIP VI SCH ×4 (06:23→23:21)
[2022-11-16] MEDS: METRONIDAZOLE 500 MG/NS 100ML 500 MG in PREMIXED 1 EACH IV SCH ×3 (06:23→21:34)
--- NOTE | 2022-11-16 07:15 | NUR ---
Received pt. on BIPAP 10/11, Rate of 16, FIO2 30%. saturation of 98-100%. No tachypnea. On ply splicer and NSR sbp within normal limits no pressors needed it. SPC with clear sedimented output. Midline abdominal incision surgical dressing c.d.i. Neuro-bolaños pt. easily arousable Ox3. no c/of pain at this time. TLC patent. Will continue to monitor.
[2022-11-16] MEDS: MAGNESIUM SULFATE/D5W 100 ML IV SCH ×2 (08:05→09:17)
[2022-11-16] MEDS: PANTOPRAZOLE SODIUM 40 MG VIAL IV SCH ×2 (08:05→21:13)
[2022-11-16] MEDS: methylPREDNISolone SOD SUCC 40 MG/ML VIAL IV SCH (08:05)
[2022-11-16] MEDS: CEFEPIME HCL 2 G in IV DEXTROSE 5% 100 ML IV SCH ×2 (08:09→21:06)
[2022-11-16] MEDS: AMIODARONE HCL 200 MG TABLET PO SCH ×2 (08:09→21:00)
[2022-11-16] MEDS: QUETIAPINE FUMARATE 25 MG TABLET NG SCH ×2 (08:09→17:00)
[2022-11-16] MEDS: CARVEDILOL 12.5 MG TABLET PO SCH ×2 (08:09→21:00)
--- NOTE | 2022-11-16 08:20 | NUR ---
Cardiology services, Dr. Calloway in the unit to follow up on pt. report given, see orders.
--- NOTE | 2022-11-16 09:40 | NUR ---
James Barger in to examine pt.
[2022-11-16] MEDS ORDERED: SODIUM PHOSPHATE MM 15 MMOL in IV NORMAL SALINE 250 ML IV ONE (10:00)
[2022-11-16] MEDS ORDERED: DEXTROSE 50% 50 ML DISP.SYRIN IV PRN ×2 (11:00)
[2022-11-16] MEDS ORDERED: BLOOD SUGAR DIAGNOSTIC 1 EACH STRIP VI SCH (12:00)
[2022-11-16] MEDS ORDERED: IV D5W 1000ML 1,000 ML IV PRN (13:00)
[2022-11-16] MEDS ORDERED: TPN BAG #1 IV SCH ×5 (13:00)
[2022-11-16] MEDS: hydrALAZINE HCL 20 MG/1 ML VIAL IV PRN (22:10)
[2022-11-16] MEDS: INSULIN REGULAR, HUMAN 300 UNIT/3 ML VIAL SQ PRN (23:23)
[2022-11-17] VITALS (35 sets, daily range): BP systolic 67–169; BP diastolic 37–87
[2022-11-17] MEDS: MORPHINE SULFATE 4 MG/1 ML DISP.SYRIN IV PRN (00:26)
[2022-11-17] MEDS: IPRATROPIUM BROMIDE 0.5 MG/2.5 ML NEBU NEB SCH ×4 (01:14→18:36)
[2022-11-17] MEDS: ALBUTEROL SULFATE 1.25 MG/3 ML NEBU NEB SCH ×4 (01:14→18:37)
[2022-11-17] MEDS ORDERED: NOREPINEPHRINE BITARTRATE 8 MG in IV NORMAL SALINE 242 ML IV PRN (02:00)
[2022-11-17] MEDS ORDERED: NOREPINEPHRINE BITARTRATE 4 MG/4 ML VIAL IV ONE ×2 (02:03)
--- NOTE | 2022-11-17 02:40 | NUR ---
Pt care continue as SPEECH COMMUNICATION INSTRUCTOR just ended as it was called at 0150AM with ACL Protocol follow with ER MD at bedside and code team. Pt is now Intubated with EET .11/17 Lip side.
[2022-11-17] MEDS ORDERED: FUROSEMIDE 40 MG/4 ML VIAL IV ONE (03:00)
--- NOTE | 2022-11-17 03:00 | NUR ---
Pt attending is been notify but is DR. Osullivan that is on called with new orders noted , please orders. Pt care continue.
[2022-11-17] MEDS: MICAFUNGIN SODIUM 100 MG in IV NORMAL SALINE 100 ML IV SCH (03:11)
[2022-11-17] MEDS: PROPOFOL 100 ML IV PRN ×3 (03:34→18:57)
--- NOTE | 2022-11-17 03:34 | NUR ---
Pt care continue as he started on Propofol 20mcg gtt and Beth Clark was updated at [phone] on Pt change off conditions.
--- NOTE | 2022-11-17 04:00 | NUR ---
Pt is started on soft wrist Restraints as Dr. Mcbride ordered. Pt care continue.
[2022-11-17 05:08] LABS: MEAN CORPUSCULAR HEMOGLOBIN 26.9 uug (23.8-33.4); MEAN CORPUSCULAR VOLUME 87.5 fL (73.0-96.2); PLATELET COUNT (AUTO) 169 K/uL (152-348)
[2022-11-17 05:17] LABS: BAND % (MANUAL) 2 % (0-10)
[2022-11-17 05:18] LABS: LYMPHOCYTES % (MANUAL) 10 % (20-40); MONOCYTES % (MANUAL) 8 % (2-10); NEUTROPHILS % (MANUAL) 80 % (42-75)
[2022-11-17 05:25] LABS: CREATININE 1.5 mg/dL (0.6-1.3); MAGNESIUM 2.3 mg/dL (1.8-2.4); POTASSIUM 3.9 mmol/L (3.5-5.1)
[2022-11-17] MEDS: METRONIDAZOLE 500 MG/NS 100ML 500 MG in PREMIXED 1 EACH IV SCH ×3 (05:50→21:05)
[2022-11-17] MEDS: BLOOD SUGAR DIAGNOSTIC 1 EACH STRIP VI SCH ×4 (06:00→23:27)
[2022-11-17] MEDS: INSULIN REGULAR, HUMAN 300 UNIT/3 ML VIAL SQ PRN ×3 (06:24→23:29)
[2022-11-17] MEDS: NOREPINEPHRINE BITARTRATE 8 MG in IV NORMAL SALINE 242 ML IV PRN ×2 (06:29→07:06)
--- NOTE | 2022-11-17 07:00 | NUR ---
Received pt. on Mechanical Ventilator as reported intubated at around 0200 A/C20, TV 550, Peep +5, and 80% FIO2. saturation of 98%. Patient received with sbp in the lo 30'40's awaiting levophed deliver Patient placed reverse trend. propofol placed on hold. sbp improved to the 80's. With propofol on hold pt. awoke, oriented X2. able no node head to close ended questions. Once levophed resumed propofol resumed. BUE restrains released. Patient adequately sedated, on NSR rate in the 80's. SPC with sedimented output. TLC with dressing to be changed. TPN running as ordered. Skin with no new injury. Will continue with care plan.
[2022-11-17] MEDS: QUETIAPINE FUMARATE 25 MG TABLET NG SCH (08:31)
[2022-11-17] MEDS: methylPREDNISolone SOD SUCC 40 MG/ML VIAL IV SCH (08:31)
[2022-11-17] MEDS: PANTOPRAZOLE SODIUM 40 MG VIAL IV SCH ×2 (08:31→21:03)
[2022-11-17] MEDS: AMIODARONE HCL 200 MG TABLET PO SCH (08:32)
[2022-11-17] MEDS: CARVEDILOL 12.5 MG TABLET PO SCH (08:32)
[2022-11-17] MEDS: CEFEPIME HCL 2 G in IV DEXTROSE 5% 100 ML IV SCH ×2 (08:35→21:04)
--- NOTE | 2022-11-17 09:00 | NUR ---
Cardiology services, Dr. Calloway in the unit to examine pt. report given orders for STAT ekg received and implemented.
--- NOTE | 2022-11-17 09:20 | NUR ---
Attending N.P. in the unit to follow up on pt. orders for NG-T insertion received.
--- NOTE | 2022-11-17 10:37 | NUR ---
Pulmonary services, Dr. Cuevas in the unit to examine pt. report given and orders for ABG at 1400 received.
[2022-11-17] MEDS ORDERED: NOREPINEPHRINE BITARTRATE 32 MG in IV NORMAL SALINE 218 ML IV PRN (11:00)
--- NOTE | 2022-11-17 11:07 | NUR ---
A call from attending stating that He updated pt's and ok to proceed with NG insertion.
[2022-11-17] MEDS ORDERED: QUETIAPINE FUMARATE 25 MG TABLET PO SCH (11:30)
--- NOTE | 2022-11-17 11:53 | NUR ---
DR. Cuevas notified that pt's Ms. Campos can only meet with him at 1400 as arranged by Ms. HensleyТатьяна. Attending also notified and advice to endorse to incoming Epic. group. Dr. Cuevas stated that He's not available at that time and that I should notified attending of meeting, He was informed that attending was notified as well.
--- NOTE | 2022-11-17 11:55 | NUR ---
Ms. Campos called one more time by SHAMIKA and at this time she agreed to come and meet with Dr. Cuevas. notified.
--- NOTE | 2022-11-17 11:59 | NUR ---
SHAMIKA spoke with patient's , Beth Clark ([phone]), and scheduled her to meet with Dr. Cuevas at 10:30am tomorrow. SW informed nurseAnalisa.
[2022-11-17] MEDS ORDERED: IV FAT EMULSIONS 20% 250 ML IV SCH (13:00)
[2022-11-17] MEDS: FUROSEMIDE 40 MG/4 ML VIAL IV SCH (13:16)
[2022-11-17] MEDS: VALACYCLOVIR HCL 500 MG TABLET NG SCH ×2 (13:30→21:05)
[2022-11-17] MEDS ORDERED: MAGNESIUM HYDROXIDE 30 ML LIQUID UDC GT PRN (13:40)
--- NOTE | 2022-11-17 15:00 | NUR ---
Afternoon blood gases reported to Dr. Cuevas. No orders received.
--- NOTE | 2022-11-17 16:34 | NUR ---
Patient on sustained bradycardia EKG confirmed and neck pinner Dr. Calloway called and notified, also informed that SBP remains within normal with levophed on. Orders to continue monitoring received.
[2022-11-17] MEDS ORDERED: GLUCERNA 1.2 1000ML LIQUID GT PRN (17:00)
--- NOTE | 2022-11-17 17:00 | NUR ---
Pt's sister Ms. Moore in to visit and at this time she requested to be called in case of an emergency and if pt's does not picker feeder the calls. her number is
[2022-11-17 18:49] LABS: ABG BASE EXCESS -8.6 mmol/L; ABG HCO3 17.3 mmol/L; ABG PCO2 37.2 mmHg (35.0-45.0); ABG PH 7.285 (7.350-7.450); ABG PO2 135.9 mmHg (75.0-100.0); ABG SITE RIGHT RADIAL; ABG TOTAL HEMOGLOBIN 9.4 G/dL (13.5-18.0); COHb 0.2 % (0.5-1.5); MetHb 0.3 % (0.0-1.5); O2Hb 97.7 % (94.0-97.0); VENT MODE VENT - A/C; VT, ABG 550 mL
[2022-11-17 18:49] LABS: ABG BASE EXCESS -7.2 mmol/L; ABG HCO3 19.1 mmol/L; ABG PCO2 41.2 mmHg (35.0-45.0); ABG PH 7.283 (7.350-7.450); ABG SITE RIGHT RADIAL; ABG TOTAL HEMOGLOBIN 10.6 G/dL (13.5-18.0); MetHb 0.3 % (0.0-1.5); O2Hb 97.8 % (94.0-97.0); VENT MODE VENT - A/C; VT, ABG 550 mL
--- NOTE | 2022-11-17 19:15 | NUR ---
Pt is noted sedated on Propofol at 30mcg with EET to Vent therapy as report is received from the off going nurse. Sinus Rk on the Tele monitor , Diminished Lungs sound with Vent therapy ETT 7.5 with Lip size24, skin dry, cool but skin areas noted including surgical sites , Please see skin assessment sheet in chart. Pt is noted with TLC, IJ , Suprapubic Cath, NG-Tube with Feeding Glucerna noted now at 20cc/HR and will be advance in 6HRS ordered. Pt care continue as he will be, suction as needed , turn and reposition Q2HRS for comfort with Levo gtt therapy in progress at 0.2mcg while monitor closely.
[2022-11-17] MEDS: AMIODARONE HCL 200 MG TABLET GT SCH (21:00)
[2022-11-17] MEDS: CARVEDILOL 12.5 MG TABLET GT SCH (21:00)
[2022-11-18] VITALS (50 sets, daily range): BP systolic 82–157; BP diastolic 46–98
--- NOTE | 2022-11-18 00:30 | NUR ---
Pt care continue as he remain Sedated with ETT in placed as he is been suction as needed. Pt care [id number] with Feeding and gtts infusing as ordered while monitor closely.
[2022-11-18] MEDS: MICAFUNGIN SODIUM 100 MG in IV NORMAL SALINE 100 ML IV SCH (00:49)
[2022-11-18] MEDS: ALBUTEROL SULFATE 1.25 MG/3 ML NEBU NEB SCH ×4 (00:55→19:35)
[2022-11-18] MEDS: IPRATROPIUM BROMIDE 0.5 MG/2.5 ML NEBU NEB SCH ×4 (00:55→19:35)
[2022-11-18] MEDS: PROPOFOL 100 ML IV PRN ×2 (03:36→11:44)
--- NOTE | 2022-11-18 04:23 | NUR ---
Pt remain full code , sedated as AM care and wound done . Pt care continue with Feeding and gtt infusing as ordered.
[2022-11-18 05:25] LABS: HEMATOCRIT 27.8 % (36.7-47.1); MEAN CORPUSCULAR HEMOGLOBIN 27.1 uug (23.8-33.4); MEAN CORPUSCULAR VOLUME 84.4 fL (73.0-96.2); PLATELET COUNT (AUTO) 157 K/uL (152-348)
[2022-11-18 05:47] LABS: CREATININE 1.9 mg/dL (0.6-1.3); MAGNESIUM 2.2 mg/dL (1.8-2.4); PHOSPHOROUS 4.2 mg/dL (2.5-4.9); POTASSIUM 3.8 mmol/L (3.5-5.1)
[2022-11-18] MEDS: METRONIDAZOLE 500 MG/NS 100ML 500 MG in PREMIXED 1 EACH IV SCH ×3 (06:05→22:12)
[2022-11-18] MEDS: BLOOD SUGAR DIAGNOSTIC 1 EACH STRIP VI SCH ×4 (06:12→23:58)
--- NOTE | 2022-11-18 07:10 | NUR ---
Received pt. on classroom monitor rate in the 110's On ventilator ETT 7.5 25LL A/C20, TV 550, Peep +5 and 50% FIO2. saturation of 88% coughing. Circuit problem fix patient retuned to 98% saturation. Ng-T in place feeding to be resumed colostomy in place, SPC with sedimented output. and followed up as indicated. TLC RIJ patent. Will continue to monitor.
--- NOTE | 2022-11-18 07:36 | NUR ---
Pt care continue as report is given to the AM receiving RN.
[2022-11-18] MEDS: PANTOPRAZOLE SODIUM 40 MG VIAL IV SCH ×2 (08:04→22:11)
[2022-11-18] MEDS: methylPREDNISolone SOD SUCC 40 MG/ML VIAL IV SCH (08:05)
[2022-11-18] MEDS: FUROSEMIDE 40 MG/4 ML VIAL IV SCH (08:05)
--- NOTE | 2022-11-18 08:05 | NUR ---
Cardiology services, Dr. Calloway in the unit to examine pt. report given orders to continue with care plan received.
[2022-11-18] MEDS: AMIODARONE HCL 200 MG TABLET GT SCH ×2 (08:06→21:00)
[2022-11-18] MEDS: CARVEDILOL 12.5 MG TABLET GT SCH (08:06)
[2022-11-18] MEDS: VALACYCLOVIR HCL 500 MG TABLET NG SCH ×2 (08:08→22:11)
[2022-11-18] MEDS: CEFEPIME HCL 2 G in IV DEXTROSE 5% 100 ML IV SCH ×2 (08:11→22:11)
[2022-11-18] MEDS ORDERED: GLUCERNA 1.2 1000ML LIQUID GT PRN ×2 (08:20→19:00)
--- NOTE | 2022-11-18 10:30 | NUR ---
Attending Hector Skinner in the unit to examine pt. report given orders to advance feeding to goal theraphy if no residuals by this afternoon.
--- NOTE | 2022-11-18 11:00 | NUR ---
Pulmonary services, and attending having a meeting with pt's and sister.
[2022-11-18] MEDS: FENTANYL CITRATE/PF 1,000 MCG in IV NORMAL SALINE 80 ML IV PRN ×2 (12:04→22:13)
[2022-11-18] MEDS: INSULIN REGULAR, HUMAN 300 UNIT/3 ML VIAL SQ PRN ×2 (12:22→17:31)
--- NOTE | 2022-11-18 17:05 | NUR ---
PT REMAINS INTUBATED ON CMV, FIO2 TITRATED TO 40% DURING SHIFT. ETT REPOSITIONED Q2, ETT/ORAL SXN PRN. ORAL CARE PROVIDED. SPO2 AND RESPIRATIONS WNL ON CURRENT VENT SETTINGS. NO RESP. DISTRESS NOTED DURING SHIFT. IN-LINE TX'S TOLERATED WELL WITHOUT ADVERSE REACTION. WILL CONTINUE TO MONITOR AND FOLLOW CURRENT RESPIRATORY ORDERS.
[2022-11-19] VITALS (40 sets, daily range): BP systolic 95–164; BP diastolic 44–107
[2022-11-19] MEDS: INSULIN REGULAR, HUMAN 300 UNIT/3 ML VIAL SQ PRN ×2 (00:13→18:06)
[2022-11-19] MEDS: ALBUTEROL SULFATE 1.25 MG/3 ML NEBU NEB SCH ×4 (00:53→20:30)
[2022-11-19] MEDS: IPRATROPIUM BROMIDE 0.5 MG/2.5 ML NEBU NEB SCH ×4 (00:53→20:30)
[2022-11-19] MEDS: MICAFUNGIN SODIUM 100 MG in IV NORMAL SALINE 100 ML IV SCH (01:32)
[2022-11-19 05:16] LABS: HEMATOCRIT 25.5 % (36.7-47.1); MEAN CORPUSCULAR HEMOGLOBIN 27.5 uug (23.8-33.4); MEAN CORPUSCULAR VOLUME 84.6 fL (73.0-96.2); PLATELET COUNT (AUTO) 121 K/uL (152-348)
[2022-11-19 05:40] LABS: BAND % (MANUAL) 2 % (0-10); CREATININE 2.6 mg/dL (0.6-1.3); MAGNESIUM 2.3 mg/dL (1.8-2.4); PHOSPHOROUS 4.8 mg/dL (2.5-4.9); POTASSIUM 3.7 mmol/L (3.5-5.1)
[2022-11-19 05:41] LABS: LYMPHOCYTES % (MANUAL) 10 % (20-40); MONOCYTES % (MANUAL) 12 % (2-10)
[2022-11-19 05:42] LABS: NEUTROPHILS % (MANUAL) 76 % (42-75)
--- NOTE | 2022-11-19 06:00 | NUR ---
sedated but arousable. cont.withsame setting to oralett. suctioned. repositioned colostomy bag drainnig 100ml black stool abdominal dressing intact /dry. close monitoring
[2022-11-19] MEDS: BLOOD SUGAR DIAGNOSTIC 1 EACH STRIP VI SCH ×3 (06:52→18:01)
[2022-11-19] MEDS: METRONIDAZOLE 500 MG/NS 100ML 500 MG in PREMIXED 1 EACH IV SCH ×3 (06:52→21:54)
[2022-11-19] MEDS: VALACYCLOVIR HCL 500 MG TABLET NG SCH ×2 (08:17→20:34)
[2022-11-19] MEDS: PANTOPRAZOLE SODIUM 40 MG VIAL IV SCH (08:17)
[2022-11-19] MEDS: AMIODARONE HCL 200 MG TABLET GT SCH ×2 (08:18→20:36)
[2022-11-19] MEDS: methylPREDNISolone SOD SUCC 40 MG/ML VIAL IV SCH (08:18)
[2022-11-19] MEDS: FUROSEMIDE 40 MG/4 ML VIAL IV SCH (08:19)
[2022-11-19] MEDS: CEFEPIME HCL 2 G in IV DEXTROSE 5% 100 ML IV SCH ×2 (08:20→20:34)
[2022-11-19] MEDS: FENTANYL CITRATE/PF 1,000 MCG in IV NORMAL SALINE 80 ML IV PRN (14:05)
--- NOTE | 2022-11-19 17:52 | NUR ---
patient taken down for CT of abdomen. patient tolerated well. no problems on transport.
[2022-11-19] MEDS ORDERED: BUMETANIDE INJ 4 MG in IV DEXTROSE 5% 24 ML IV ONE (18:00)
[2022-11-19] MEDS: PANTOPRAZOLE ORAL SUSPENSION 40 MG SUSPDR.PKT NG SCH (18:06)
--- NOTE | 2022-11-19 19:04 | NUR ---
challenge with bumex drip 4mg. per Dr Sheppard for low output.
--- NOTE | 2022-11-19 19:20 | NUR ---
Pt is noted sedated on Fentanyl 50mcg/5ML with EET to Vent therapy as report is received from the off going nurse. Sinus Rhythm on the Tele monitor , Diminished Lungs sound with Vent therapy ETT 7.5 with Lip size25, Setting at AC 20, 40% 550 and 5, skin dry, cool but skin areas noted including surgical sites , Please see skin assessment sheet in chart. Pt is noted with TLC, IJ , Suprapubic Cath, NG-Tube with Feeding Glucerna noted now at 40cc/HR x22/HRS. Pt care continue as he will be, suction as needed , turn and reposition Q2HRS for comfort while monitor closely for any S/S off distress or change in conditions during the shift.
--- NOTE | 2022-11-19 20:17 | NUR ---
Pt care continue as he is started with challenge with bumex drip 4mg therapy, per Dr Sheppard for low urine output.
[2022-11-20] VITALS (30 sets, daily range): BP systolic 85–146; BP diastolic 46–78
[2022-11-20] MEDS: BLOOD SUGAR DIAGNOSTIC 1 EACH STRIP VI SCH ×4 (00:18→18:16)
--- NOTE | 2022-11-20 00:18 | NUR ---
Pt remain full code as he just completed his 4mg IVPB off Bumaex therapy , Sinus Rhythm on the Tele monitor as Blood Pressure is been monitor closely. Pt care continue with Fentanyl 50mcg therapy in progress with EET to Vent in place .
[2022-11-20] MEDS: MICAFUNGIN SODIUM 100 MG in IV NORMAL SALINE 100 ML IV SCH (02:00)
--- NOTE | 2022-11-20 04:30 | NUR ---
Pt remain full code , sedated with Fentanyl gtt at 50mcq as AM care and wound done . Pt care continue with Feeding infusing at 40ML/HR.
[2022-11-20 05:13] LABS: HEMATOCRIT 21.1 % (36.7-47.1)
[2022-11-20 05:16] LABS: MEAN CORPUSCULAR HEMOGLOBIN 27.3 uug (23.8-33.4); MEAN CORPUSCULAR VOLUME 84.5 fL (73.0-96.2); PLATELET COUNT (AUTO) 84 K/uL (152-348)
[2022-11-20] MEDS: ALBUTEROL SULFATE 1.25 MG/3 ML NEBU NEB SCH ×4 (05:33→20:38)
[2022-11-20] MEDS: IPRATROPIUM BROMIDE 0.5 MG/2.5 ML NEBU NEB SCH ×4 (05:33→20:37)
[2022-11-20 05:38] LABS: CREATININE 3.2 mg/dL (0.6-1.3); MAGNESIUM 2.4 mg/dL (1.8-2.4); PHOSPHOROUS 6.1 mg/dL (2.5-4.9); POTASSIUM 4.2 mmol/L (3.5-5.1)
[2022-11-20 06:16] LABS: *BILIRUBIN,URIN NEGATIVE (NEGATIVE); *COLOR,URINE YELLOW (YELLOW); *KETONES,URINE NEGATIVE (NEGATIVE); *UROBILINOGEN,URINE 0.2 E.U./dl (NORMAL); LEUKOCYTE ESTERASE ,URINE TRACE (NEGATIVE); NITRITE, URINE NEGATIVE (NEGATIVE); PH,URINE 5.5 (5.0-8.0); UGLUCOSE NEGATIVE (NEGATIVE)
[2022-11-20 06:17] LABS: *BLOOD, URINE TRACE (NEGATIVE); *CLARITY,URINE HAZY (CLEAR)
[2022-11-20 06:18] LABS: BACTERIA,URINE FEW /HPF (NONE SEEN); SQUAMOUS EPITHELIAL CELL,UR NONE SEEN /HPF (NONE SEEN)
[2022-11-20] MEDS: METRONIDAZOLE 500 MG/NS 100ML 500 MG in PREMIXED 1 EACH IV SCH ×3 (06:18→21:47)
[2022-11-20] MEDS: PANTOPRAZOLE ORAL SUSPENSION 40 MG SUSPDR.PKT NG SCH ×2 (06:18→18:16)
--- NOTE | 2022-11-20 07:29 | NUR ---
Pt care continue as report is given to the AM receiving nurse.
[2022-11-20] MEDS: AMIODARONE HCL 200 MG TABLET GT SCH ×2 (09:14→21:00)
[2022-11-20] MEDS: methylPREDNISolone SOD SUCC 40 MG/ML VIAL IV SCH (09:14)
[2022-11-20] MEDS ORDERED: diphenhydrAMINE 50 MG/1 ML VIAL IV PRN (09:15)
[2022-11-20] MEDS ORDERED: ACETAMINOPHEN 325 MG TABLET PO PRN (09:15)
[2022-11-20] MEDS: FENTANYL CITRATE/PF 1,000 MCG in IV NORMAL SALINE 80 ML IV PRN ×2 (09:36→16:46)
[2022-11-20] MEDS ORDERED: LORAZEPAM 2 MG/1 ML VIAL IV ONE (13:00)
--- NOTE | 2022-11-20 13:00 | NUR ---
called CLS spoke to evangelist if blood is ready. blood is not ready. will call me back when ready.
--- NOTE | 2022-11-20 17:00 | NUR ---
called lab CLS not available to pick out hand the blood. will be ready at 2200.
[2022-11-20] MEDS: INSULIN REGULAR, HUMAN 300 UNIT/3 ML VIAL SQ PRN (18:28)
[2022-11-20] MEDS ORDERED: VALACYCLOVIR HCL 500 MG TABLET NG SCH (21:00)
[2022-11-20] MEDS ORDERED: CEFEPIME HCL 2 G in IV DEXTROSE 5% 100 ML IV SCH (21:00)
--- NOTE | 2022-11-20 21:26 | NUR ---
HELD AMIODARONE DUE TO HR 59
--- NOTE | 2022-11-20 22:39 | NUR ---
pt having twitching time to time since morning, notified DR Duron.
[2022-11-21] VITALS (28 sets, daily range): BP systolic 66–158; BP diastolic 36–79
[2022-11-21] MEDS: BLOOD SUGAR DIAGNOSTIC 1 EACH STRIP VI SCH ×3 (00:13→11:11)
[2022-11-21] MEDS: MICAFUNGIN SODIUM 100 MG in IV NORMAL SALINE 100 ML IV SCH (02:34)
[2022-11-21] MEDS: IPRATROPIUM BROMIDE 0.5 MG/2.5 ML NEBU NEB SCH ×3 (03:00→13:11)
[2022-11-21] MEDS: ALBUTEROL SULFATE 1.25 MG/3 ML NEBU NEB SCH ×3 (03:01→13:11)
[2022-11-21 05:54] LABS: MEAN CORPUSCULAR HEMOGLOBIN 28.1 uug (23.8-33.4); MEAN CORPUSCULAR VOLUME 85.6 fL (73.0-96.2); PLATELET COUNT (AUTO) 107 K/uL (152-348)
[2022-11-21 06:10] LABS: CREATININE 3.8 mg/dL (0.6-1.3); MAGNESIUM 2.4 mg/dL (1.8-2.4); PHOSPHOROUS 7.2 mg/dL (2.5-4.9); POTASSIUM 4.7 mmol/L (3.5-5.1)
[2022-11-21] MEDS: METRONIDAZOLE 500 MG/NS 100ML 500 MG in PREMIXED 1 EACH IV SCH ×2 (06:13→13:02)
[2022-11-21] MEDS: PANTOPRAZOLE ORAL SUSPENSION 40 MG SUSPDR.PKT NG SCH (06:13)
--- NOTE | 2022-11-21 06:41 | NUR ---
pt NG Tube got out.
[2022-11-21] MEDS: methylPREDNISolone SOD SUCC 40 MG/ML VIAL IV SCH (09:54)
[2022-11-21] MEDS: AMIODARONE HCL 200 MG TABLET GT SCH (09:54)
--- NOTE | 2022-11-21 14:15 | NUR ---
Received the patient resting comfortably in bed, Fentanyl still infusing @ 25mcgs per hour, breathing easy and unlabored on mechanical vent with the following settings rate 20, TV 500, peep 5 and Fi02 50%. Sister @ bedside and she had a meeting with the doctor, they will have another meeting scheduled for this afternoon, to discuss code status along with the . Dr. Cuevas ordered stat ABG, which was done, following result: PH 7.217, PC02 35.4, O2 91.7, HC03 14.11, BE -12.7 and tHb 10.64, Dr. Cuevas service has been notified, no call back as of yet. NG replaced, Xray completed, waiting on confirmation to use the line.
--- NOTE | 2022-11-21 14:56 | NUR ---
TF's restarted @ 40cc/hour.
--- NOTE | 2022-11-21 15:44 | NUR ---
Patient is now DNR/DNI, family members allowed to visit.
[2022-11-21] MEDS ORDERED: MORPHINE SULFATE 2 MG/1 ML DISP.SYRIN IV ONE (15:45)
[2022-11-21] MEDS ORDERED: SCOPOLAMINE PATCH 1 MG/72 HRS PATCH TD SCH (15:45)
--- NOTE | 2022-11-21 17:57 | NUR ---
BS 148, Morphine 2mg IV given, then Morphine drip initiated afterwards. The patient is comfortable , shallow breathing noted, family at the bedside.
[2022-11-21] MEDS ORDERED: MORPHINE SULFATE PF IV DRIP 100 MG in IV DEXTROSE 5% 96 ML IV PRN (18:00)
--- NOTE | 2022-11-21 19:10 | NUR ---
Pt is noted DNR/DNI with EET to Vent therapy as report is received from the off going nurse, that pt is on comfort care now with Morphine gtt 2mg/HR for Max 20mg/ and also Ativan 1mfg IVP Q1HRS . Sinus Rhythm on the Tele monitor , Shallow Breathing with Vent therapy ETT 7.5 with Lip size25, Setting at AC 20, 40% 550 and 5 as orders noted to Extubated after Pt is been comfortable . skin dry, cool but skin areas noted including surgical sites , Please see skin assessment sheet in chart. Pt is noted with TLC, IJ , Suprapubic Cath, NG-Tube but no longer on feeding. Pt care continue as he will be suction as needed , turn and reposition Q2HRS for comfort while monitor closely for any S/S off distress or change in conditions during the shift while awaits to be Extubated with the Help off RT.
--- NOTE | 2022-11-21 20:00 | NUR ---
Pt remain DNR/DNI with Morphine up 2mg as ordered as he is stlll having Shallow Breathing. Pt care continue with family at bedside
[2022-11-21] MEDS: LORAZEPAM 2 MG/1 ML VIAL IV PRN ×2 (20:15→23:18)
--- NOTE | 2022-11-21 20:15 | NUR ---
Ativan 1mg IVP given as pt is still having Shallow Breathing and he is about to be Extubated with the Help off RT. Pt care continue as family at bedside as he remain DNR with comfort care therapy in progress .
--- NOTE | 2022-11-21 21:00 | NUR ---
Morphine drip is now at 8mg/hr after been Titrated up by 2mg as ordered. Pt care continue with family at bedside.
--- NOTE | 2022-11-21 21:05 | NUR ---
Pt is going off the unit for an Hour she say and requested to hold on the Extubation until she gets back. Pt care continue as he remain on comfort care with Morphine gtt therapy in progress and RT is informed off request.
--- NOTE | 2022-11-21 22:38 | NUR ---
Pt care continue as just got back to the unit and RT is called and Pt and is now ready to be Extubated.
--- NOTE | 2022-11-21 23:00 | NUR ---
Pt extubated at this time per MD order. Placed on 2LPM N/C for comfort. RN at bedside.
--- NOTE | 2022-11-21 23:09 | NUR ---
Family requested to be put on simple mask. 6LPM
--- NOTE | 2022-11-21 23:13 | NUR ---
Pt care continue as Morphine Drip is now up to 10mg as he is been Extubated by RT and now on face mask at 6Liters. Pt care continue with family at bedside.
--- NOTE | 2022-11-21 23:22 | NUR ---
Ativan 1mg IVP given for comfort. Pt care continur as he remain DNR/DNI.
[2022-11-22] VITALS (8 sets, daily range): BP systolic 0–108; BP diastolic 0–74
[2022-11-22 00:02] LABS: ABG BASE EXCESS -12.7 mmol/L; ABG HCO3 14.1 mmol/L; ABG PCO2 35.4 mmHg (35.0-45.0); ABG PH 7.217 (7.350-7.450); ABG PO2 91.7 mmHg (75.0-100.0); ABG SITE RIGHT RADIAL; ABG TOTAL HEMOGLOBIN 10.6 G/dL (13.5-18.0); COHb 0.7 % (0.5-1.5); O2Hb 95.3 % (94.0-97.0); VENT MODE VENT - A/C; VT, ABG 550 mL
--- NOTE | 2022-11-22 00:44 | NUR ---
Pt remain DNR/DNI with Morphine gtt at 10mg therapy in progress with family at bedside. Pt care continue with comfort care in progress.
--- NOTE | 2022-11-22 01:30 | NUR ---
Pt just left the unit for home. Pt care continue as he remain on Morphine gtt and DNR/DNI.
[2022-11-22] MEDS: MICAFUNGIN SODIUM 100 MG in IV NORMAL SALINE 100 ML IV SCH (02:00)
[2022-11-22] MEDS ORDERED: MORPHINE 100 MG IV PRN (03:30)
[2022-11-22] MEDS ORDERED: DEXTROSE 5% IV PRN (03:30)
--- NOTE | 2022-11-22 03:41 | NUR ---
Pt called as requested as pt is the 30s Heart Rates . Pt care continue as he remain DNR/DNI.
[2022-11-22] MEDS: LORAZEPAM 2 MG/1 ML VIAL IV PRN (04:00)
--- NOTE | 2022-11-22 04:00 | NUR ---
Ativan 1mg IVP given per Request as pt remain DNR/DNI.
--- NOTE | 2022-11-22 04:45 | NUR ---
Pt is noted Asystole on the Tele monitor and Chest Pain Coordinator notify off change in condition with At bedside.
--- NOTE | 2022-11-22 04:48 | NUR ---
Decedent is been pronounced by Sand Control Worker.
--- NOTE | 2022-11-22 05:06 | NUR ---
Endy notify and spoke with Benjamin Mauri with case #[id number]. Decedent at bedside .
--- NOTE | 2022-11-22 06:00 | NUR ---
Decedent is been clean and bag after and orther family had left the unit and all tube with Lines been discontinue.
[2022-11-22] MEDS ORDERED: SUCCINYLCHOLINE CHLORIDE 200 MG/10 ML VIAL IV ONE (06:59)
[2022-11-22] MEDS ORDERED: ETOMIDATE 20 MG/10 ML VIAL IV ONE (06:59)
--- NOTE | 2022-11-22 07:08 | NUR ---
Report given to the AM receiving Nurse.
--- NOTE | 2022-11-22 08:16 | NUR ---
Note Pt at 04:48. Upon auscultation, there are no breath sounds, no chest rising visualized, and not pulse felt. Patient's , his sister and another male family member at bedside. Pt 's family received the list of morturaries and homes in the area.
== END 2022-11-22 07:00 | DRG 710 ==
LOC: ER 23:53 → TRANSITION 10-27 04:05 → CCU 10-29 19:48 → TRANSITION 11-01 20:49 → TELE3 11-02 18:22 → MEDSURG3 11-03 09:58 → TELE3 11-03 19:08 → TRANSITION 11-04 01:26 → CCU 11-04 20:58
PROVIDERS: ADMIT Nurse Practitioner Acute Care; ATTEND Internal Medicine
PROC: 5A09457 Assistance with Respiratory Ventilation, 24-96 Consecutive Hours, Continuous Positive Airway Pressure (ICD-10-PCS; principal; 2022-10-27)
PROC: 30233N1 Transfusion of Nonautologous Red Blood Cells into Peripheral Vein, Percutaneous Approach (ICD-10-PCS; 2022-10-28)
PROC: 0T9B30Z Drainage of Bladder with Drainage Device, Percutaneous Approach (ICD-10-PCS; 2022-10-29)
PROC: 0W9G00Z Drainage of Peritoneal Cavity with Drainage Device, Open Approach (ICD-10-PCS; 2022-11-04)
PROC: 0DTN0ZZ Resection of Sigmoid Colon, Open Approach (ICD-10-PCS; 2022-11-04)
PROC: 0D1E0Z4 Bypass Large Intestine to Cutaneous, Open Approach (ICD-10-PCS; 2022-11-04)
PROC: 02HV33Z Insertion of Infusion Device into Superior Vena Cava, Percutaneous Approach (ICD-10-PCS; 2022-11-04)
PROC: 5A1955Z Respiratory Ventilation, Greater than 96 Consecutive Hours (ICD-10-PCS; 2022-11-17)
PROC: 0BH17EZ Insertion of Endotracheal Airway into Trachea, Via Natural or Artificial Opening (ICD-10-PCS; 2022-11-17)
DX: A41.51 Sepsis due to Escherichia coli [E. coli] (principal); N17.0 Acute kidney failure with tubular necrosis; K72.00 Acute and subacute hepatic failure without coma; K65.0 Generalized (acute) peritonitis; R65.21 Severe sepsis with septic shock; J96.01 Acute respiratory failure with hypoxia; J96.02 Acute respiratory failure with hypercapnia; K65.9 Peritonitis, unspecified; D61.818 Other pancytopenia; E43 Unspecified severe protein-calorie malnutrition; Z51.5 Encounter for palliative care; Z66 Do not resuscitate; G92.8 Other toxic encephalopathy; A41.59 Other Gram-negative sepsis; D68.59 Other primary thrombophilia; E83.39 Other disorders of phosphorus metabolism; I50.23 Acute on chronic systolic (congestive) heart failure; E87.21 Acute metabolic acidosis; J18.9 Pneumonia, unspecified organism; I13.0 Hypertensive heart and chronic kidney disease with heart failure and stage 1 through stage 4 chronic kidney disease, or unspecified chronic kidney disease; I48.92 Unspecified atrial flutter; R18.8 Other ascites; K57.20 Diverticulitis of large intestine with perforation and abscess without bleeding; N35.919 Unspecified urethral stricture, male, unspecified site; R33.8 Other retention of urine; N13.6 Pyonephrosis; Z20.822 Contact with and (suspected) exposure to COVID-19; K44.9 Diaphragmatic hernia without obstruction or gangrene; I48.91 Unspecified atrial fibrillation; N32.89 Other specified disorders of bladder; E87.6 Hypokalemia; E87.5 Hyperkalemia; F41.9 Anxiety disorder, unspecified; I45.2 Bifascicular block; N32.1 Vesicointestinal fistula; Z79.84 Long term (current) use of oral hypoglycemic drugs; Z80.0 Family history of malignant neoplasm of digestive organs; Z80.8 Family history of malignant neoplasm of other organs or systems; Z86.73 Personal history of transient ischemic attack (TIA), and cerebral infarction without residual deficits; I21.A1 Myocardial infarction type 2; I42.9 Cardiomyopathy, unspecified; D47.2 Monoclonal gammopathy; E87.0 Hyperosmolality and hypernatremia; I25.10 Atherosclerotic heart disease of native coronary artery without angina pectoris; I47.1 Supraventricular tachycardia; R13.10 Dysphagia, unspecified; K66.0 Peritoneal adhesions (postprocedural) (postinfection); N18.9 Chronic kidney disease, unspecified; E11.22 Type 2 diabetes mellitus with diabetic chronic kidney disease; J45.909 Unspecified asthma, uncomplicated; J98.11 Atelectasis; F32.A Depression, unspecified; F29 Unspecified psychosis not due to a substance or known physiological condition
CPT/HCPCS: 36415; 36600; 70030-TC; 71045; 71250; 74250; 82378; 82747; 82784; 82803; 83550; 83605; 83735; 84100; 84155; 84165; 84300; 84443; 84478; 84484; 85014; 85025; 85610; 85730; 86038; 86140; 86334; 86430; 86706; 86708; 86709; 86803; 86850; 86900; 86901; 86920; 87040; 87340; 87806; 93005; 93307; 94002; 94003; 94640; 94660; 94760; 99082-TC; A4663; C9113; G0378; J0171; J0282; J0330; J0360; J0690; J0692; J0696; J1100; J1170; J1450; J1720; J1815; J1940; J2001; J2060; J2185; J2248; J2270; J2274; J2370; J2405; J2543; J2916; J2920; J2997; J3010; J3370; J3475; J3480; J3490; J3535; J3590; J7040; J7042; J7050; J7060; J7070; J7120; J7131; J7614; P9016; P9045; Q9963